=== PATIENT | male | born 1990 | race Caucasian/White ===

== ENCOUNTER 2019-01-21 18:29 | Inpatient (IN) | payer BC ==
[~2019-01-21] VITALS: Ht 170.2 cm; Wt 47.6 kg
[2019-01-21 18:38] VITALS: BP 134/82
--- NOTE | 2019-01-21 18:40 | NUR ---
BIB FRIEND WITH AAO X4. C/O ABDOMEN RADIATING TO BACK, 08/05 TODAY. C/O NAUSEA, VOMITING X5 TODAY, DIARRHEA X4 TODAY. NO SOB NOTED. PALE IN COLOR. 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 IV INITIATED. HOB UP. BED SIDE RAILS UP X1. ON LOW BED POSITION, LOCKED. ER MADE AWARE OF PT STATUS.
--- NOTE | 2019-01-21 19:08 | NUR ---
RECEIVED REPORT FROM MARISSA HARPER.
[2019-01-21] MEDS ORDERED: ONDANSETRON 4 MG/2 ML VIAL IVP ONE ×3 (19:15→21:15)
[2019-01-21] MEDS ORDERED: NACL 0.9% 1,000 ML IV ONE ×3 (19:15→20:15)
[2019-01-21] MEDS ORDERED: KETOROLAC 30 MG/ML VIAL IVP ONE (19:35)
[2019-01-21 20:09] LABS: BASOPHILS % (AUTO) 0.3 % (0.0-2.0); HEMATOCRIT 39.3 % (36-52); HEMOGLOBIN 12.7 g/dL (12.0-18.0); LYMPHOCYTES # (AUTO) 0.6 K/uL (2.0-11.5); LYMPHOCYTES % (AUTO) 5.6 % (20.5-51.1); MEAN CORPUSCULAR HEMOGLOBIN 27 pg (27-31); MEAN CORPUSCULAR HGB CONC 32 g/dL (33-37); MONOCYTES # (AUTO) 0.4 K/uL (0.8-1.0); MONOCYTES % (AUTO) 3.3 % (1.7-9.3); NEUTROPHILS # (AUTO) 10.4 K/uL (1.8-7.7); NEUTROPHILS % (AUTO) 90.8 % (42.2-75.2); PLATELET COUNT (AUTO) 293 K/uL (140-450); RED BLOOD CELL COUNT(AUTO) 4.79 MIL/uL (4.20-6.10); RED CELL DISTRIBUTION WIDTH 13.5 % (11.6-13.7); WHITE BLOOD COUNT (AUTO) 11.4 K/uL (4.8-10.8)
[2019-01-21] MEDS ORDERED: MORPHINE SULFATE 4 MG/ML SYR IVP ONE (20:15)
[2019-01-21] MEDS ORDERED: PROMETHAZINE 25 MG/ML VIAL IVP ONE (20:15)
[2019-01-21] MEDS ORDERED: PANTOPRAZOLE 40 MG INJ VIAL IVP ONE (20:15)
--- NOTE | 2019-01-21 20:35 | NUR ---
PT TAKEN TO CT.
[2019-01-21 20:36] LABS: ANION GAP 20.1 (8-16); CARBON DIOXIDE 19.1 mmol/L (21-32); CREATININE 0.8 mg/dL (0.7-1.3); POTASSIUM 3.2 mmol/L (3.5-5.1)
[2019-01-21 20:40] LABS: TOTAL BILIRUBIN 0.4 mg/dL (0.0-1.0)
--- NOTE | 2019-01-21 20:46 | NUR ---
PT RETURNED FROM CT.
[2019-01-21] MEDS ORDERED: DOCUSATE SODIUM 100 MG GELCAP PO PRN (21:15)
[2019-01-21] MEDS ORDERED: ONDANSETRON 4 MG/2 ML VIAL IM/IVP PRN (21:15)
[2019-01-21] MEDS ORDERED: ACETAMINOPHEN 325 MG TAB PO PRN (21:15)
[2019-01-21] MEDS ORDERED: HYDROcodone/APAP 7.5/325 MG 1 TAB PO PRN (21:15)
[2019-01-21] MEDS ORDERED: ESTR1TAB19 PO (21:21)
[2019-01-21] MEDS ORDERED: LORA-476 PO (21:21)
[2019-01-21] MEDS ORDERED: PROG100C4 PO (21:21)
[2019-01-21] MEDS ORDERED: SPIR50TA PO (21:21)
[2019-01-21] MEDS ORDERED: HYDR-5123 PO (21:21)
[2019-01-21] MEDS ORDERED: PANT40EC PO (21:21)
[2019-01-21] MEDS ORDERED: SERT100T PO (21:21)
[2019-01-21] MEDS ORDERED: BEN10 PO (21:21)
[2019-01-21] MEDS ORDERED: PROMETHAZINE 25 MG/ML VIAL IM PRN (21:35)
--- NOTE | 2019-01-21 21:45 | NUR ---
PATIENT ARRIVED IN THE UNIT FROM ER, ASSISTED BY TWO CAMERA CONTROL OPERATOR's. PATIENT ABLE TO AMBULATE FROM GURNEY TO BED WITH NO ASSISTANCE. PATIENT IS A/Ox4, ABLE TO MAKE NEEDS KNOWN. INTRODUCED SELF, ORIENTED PATIENT TO ROOM AND HOSPITAL ENVIRONMENT, UPDATED BOARD. CHIEF COMPLAINT FOR ABDOMINAL PAIN. DIAGNOSIS - INTRACTABLE VOMITING. PATIENT IS CURRENTLY ON NPO EXCEPTS MEDS. NO SOB OR DISTRESS NOTED, ON ROOM AIR. PATIENT HAS IV SITE ON RIGHT ANTECUBITAL, 22 GAUGE, INTACT, SALINE LOCKED. SKIN INTACT. BED IN THE LOWEST POSITION, CALL LIGHT WITHIN REACH. INATAL ASSESSMENT DONE. WILL CONTINUE TO MONITOR.
[2019-01-21 21:46] LABS: MAGNESIUM 1.5 mg/dL (1.8-2.4); THYROID STIMULATING HORMONE 0.99 uIU/mL (0.34-3.74)
[2019-01-21 21:47] LABS: PROTHROMBIN TIME 9.9 secs (10.8-13.4)
--- NOTE | 2019-01-21 21:47 | NUR ---
Patient will be admitted to care of Dr. Thompson. Admited to MS. Will go to room 103-B. Belongings list completed. Report to MARISSA Mullen.
[2019-01-21 21:51] LABS: PHOSPHORUS 0.6 mg/dL (2.5-4.9)
[2019-01-21] MEDS ORDERED: DICYCLOMINE 10 MG CAP PO PRN ×2 (21:55→21:58)
[2019-01-21] MEDS ORDERED: POTASSIUM PHOSPHATE 15 MM in NACL 0.9% 250 ML IV ONE (22:00)
[2019-01-21] MEDS ORDERED: KCL 20 MEQ/WATER INJ PREMIX 100 ML IV ONE (23:00)
[2019-01-21 23:20] LABS: APPEARANCE,URINE CLEAR (CLEAR); BILIRUBIN,URINE NEGATIVE (NEGATIVE); BLOOD, URINE NEGATIVE (NEGATIVE); COLOR,URINE YELLOW (YELLOW); LEUKOCYTE ESTERASE ,URINE NEGATIVE (NEGATIVE); NITRITE, URINE NEGATIVE (NEGATIVE); PH,URINE 8.5 (5.0-9.0); UGLUCOSE 1+ (NEGATIVE)
[2019-01-21 23:27] LABS: BARBITURATE, URINE NEG. ng/ml (NEG <=200); BENZODIAZEPINE, URINE NEG. ng/mL (NEG <=200); CANNABINOID, URINE POS. ng/mL (NEG <=50); COCAINE, URINE NEG. ng/mL (NEG <=300); OPIATE, URINE NEG. ng/mL (NEG <=2000); PHENCYCLIDINE SCREEN,URINE NEG. ng/mL (NEG <=25)
[2019-01-21] MEDS: DEXT 5% /NACL 0.9% 1,000 ML IV SCH (23:31)
[2019-01-21] MEDS: ONDANSETRON 4 MG/2 ML VIAL IM/IVP PRN (23:34)
[2019-01-21] MEDS: MORPHINE SULFATE 2 MG/ML SYR IVP PRN (23:35)
--- NOTE | 2019-01-21 23:35 | NUR ---
PATIENT COMPLAINED OF 8/[address] BOYKIN MADE AWARE; ORDERS MADE AND CARRIED OUT.
[2019-01-22] VITALS: BP 117/81
--- NOTE | 2019-01-22 00:05 | NUR ---
VITALS TAKEN, PATIENT IS AWAKE, SITTING UP ON THE BED.
--- NOTE | 2019-01-22 02:30 | NUR ---
PATIENT COMPLAINED OF VOMITING COFFEE GROUND EMESIS; DR. BOYKIN MADE AWARE, NO NEW ORDERS.
[2019-01-22] MEDS ORDERED: LORazepam 2 MG/ML VIAL IM/IVP SCH (03:01)
--- NOTE | 2019-01-22 04:40 | NUR ---
CHECKS MADE, PATIENT ASLEEP, EYES CLOSED, VISIBLE CHEST RISE AND FALL NOTED.
[2019-01-22] MEDS: MORPHINE SULFATE 2 MG/ML SYR IVP PRN ×2 (06:02→11:50)
[2019-01-22] MEDS: ONDANSETRON 4 MG/2 ML VIAL IM/IVP PRN ×3 (06:02→20:47)
[2019-01-22 07:04] LABS: RBC,URINE NONE SEEN /HPF (0-5)
--- NOTE | 2019-01-22 07:10 | NUR ---
ENDORSED PATIENT TO AM SHIFT RN; PATIENT IN STABLE CONDITION.
--- NOTE | 2019-01-22 07:11 | NUR ---
RECEIVED REPORT FROM PM NURSE AT BEDSIDE. PT SITTING , STATES TO HAVE VOMITING. VOMITING IS COFFEE GROUND IN COLOR. PM NURSE TO ADMINISTER PHENERGAN TO THE PT. COMPLAIN OF THE PAIN 05/05.. INFORMED PT THAT WILL MEDICATE THE PAIN MEDS ORDERED. PT HAS THE IV SITE ON THE RT AC 22 G. SKIN IS INTACT. INFORMED PT TO USE CALL LIGHT FRO ANY HELP. VERBALIZED UNDERSTANDING. WILL CONTINUE TO MONITOR PT.
[2019-01-22] MEDS: PROMETHAZINE 25 MG/ML VIAL IVP PRN ×2 (07:31→16:49)
[2019-01-22 08:00] VITALS: BP 137/90
[2019-01-22] MEDS ORDERED: POTASSIUM PHOSPHATE 15 MM in NACL 0.9% 250 ML IV SCH (08:00)
[2019-01-22] MEDS ORDERED: SODIUM PHOSPHATE 15 MMOLE in NACL 0.9% 250 ML IV SCH (08:00)
--- NOTE | 2019-01-22 08:28 | NUR ---
PATIENT HAS BEEN SCREENED AND CATEGORIZED HIGH NUTRITION RISK. PATIENT WILL BE SEEN WITHIN 1-2 DAYS OF ADMISSION. 01/22/19-01/23/[address]
[2019-01-22] MEDS: PANTOPRAZOLE 40 MG INJ VIAL IVP SCH ×2 (08:36→20:30)
[2019-01-22] MEDS: KETOROLAC 30 MG/ML VIAL IVP PRN ×3 (08:37→22:38)
[2019-01-22] MEDS: SERTRALINE 50 MG TAB PO SCH (08:37)
[2019-01-22] MEDS: SPIRONOLACTONE 50 MG TAB PO SCH (08:37)
[2019-01-22] MEDS: LORazepam 1 MG TAB PO SCH ×2 (08:38→20:30)
--- NOTE | 2019-01-22 08:51 | NUR ---
ADMINISTERED MEDS TO PT ORDERED. TOLERATED WELL. NO SIGN OF DISTRESS. INFORMED HER TO USE CALL LIGHT FOR ANY HELP. BED ALARM ON. WILL CONTINUE TO MONITOR PT.
[2019-01-22] MEDS: DEXT 5% /NACL 0.9% 1,000 ML IV SCH ×2 (09:00→19:54)
[2019-01-22 09:30] LABS: BASOPHILS % (AUTO) 0.1 % (0.0-2.0); HEMATOCRIT 36.2 % (36-52); HEMOGLOBIN 11.7 g/dL (12.0-18.0); MEAN CORPUSCULAR HEMOGLOBIN 27 pg (27-31); MEAN CORPUSCULAR HGB CONC 32 g/dL (33-37); MEAN CORPUSCULAR VOLUME 82.7 fL (80-94); MONOCYTES # (AUTO) 0.9 K/uL (0.8-1.0); MONOCYTES % (AUTO) 7.5 % (1.7-9.3); NEUTROPHILS # (AUTO) 10.3 K/uL (1.8-7.7); NEUTROPHILS % (AUTO) 84.4 % (42.2-75.2); PLATELET COUNT (AUTO) 271 K/uL (140-450); RED BLOOD CELL COUNT(AUTO) 4.37 MIL/uL (4.20-6.10); RED CELL DISTRIBUTION WIDTH 13.7 % (11.6-13.7); WHITE BLOOD COUNT (AUTO) 12.2 K/uL (4.8-10.8)
[2019-01-22 10:08] LABS: ANION GAP 15.2 (8-16); CARBON DIOXIDE 24.9 mmol/L (21-32); CREATININE 0.7 mg/dL (0.7-1.3); POTASSIUM 4.1 mmol/L (3.5-5.1)
[2019-01-22 10:15] LABS: CHOL/HDL RATIO 2.2 (1-4.5); MAGNESIUM 1.7 mg/dL (1.8-2.4); PHOSPHORUS 3.4 mg/dL (2.5-4.9)
--- NOTE | 2019-01-22 11:58 | NUR ---
ADMINISTERED MEDS TO PT FOR PAIN AND NAUSEA. STATES CANNOT TOLERATE THE PO MEDS. PT VOMITED AFTER TAKING PO MEDS IN AM. PT APPEARS STABLE AT THIS TIME. NO SIGN OF DISTRESS NOTED. WILL CONTINUE TO MONITOR PT.
--- NOTE | 2019-01-22 14:19 | NUR ---
01/22/19 RD INITIAL ASSESSMENT COMPLETED PLEASE REFER TO NUTRITION ASSESSMENT UNDER CARE ACTIVITY FOR ESTIMATED NUTRITIONAL NEEDS. 1. CONTINUE NPO MEDICALLY APPROPRIATE 2. RECOMMEND VEGAN CLEAR LIQUID DIET WHEN PATIENT IS MEDICALLY STABLE 3. INCREASE ENERGY AND PROTEIN DIET EDUCATION WAS PROVIDED 4. RD TO FOLLOW-UP 2-3 DAYS, HIGH RISK XIAO JONES RD
[2019-01-22 16:00] VITALS: BP 102/66
[2019-01-22] MEDS: SENNA 8.6 MG TAB PO SCH (18:28)
[2019-01-22] MEDS: METOCLOPRAMIDE 10 MG/2 ML INJ VIAL IVP SCH ×2 (18:28→23:11)
--- NOTE | 2019-01-22 19:05 | NUR ---
ENDORSED PT TO PM NURSE AT BESIDE . PT IN STABLE CONDITION.
--- NOTE | 2019-01-22 19:07 | NUR ---
RECEIVED ENDORSEMENT FROM AM SHIFT RN; PATIENT A/Ox4, AMBULATORY, ABLE TO MAKE NEEDS KNOWN. INTRODUCED SLEF UPDATED BOARD. NO SOB OR DISTRESS NOTED, ON ROOM AIR. IV SITE ON RIGHT ANTECUBITAL, 22 GAUGE, INTACT, RUNNING IVF AT 100mL/HR. SKIN INTACT. BED IN THE LOWEST POSITION. CALL LIGHT WITHIN REACH. INITIAL ASSESSMENT DONE. WILL CONTINUE TO MONITOR.
[2019-01-22] MEDS: HYOSCYAMINE 0.125 MG TAB PO SCH ×2 (19:51→23:11)
--- NOTE | 2019-01-22 20:00 | NUR ---
VITALS TAKEN, NO DISTRESS NOTED. DUE MEDS GIVEN, TOLERATED WELL.
--- NOTE | 2019-01-22 20:40 | NUR ---
PATIENT COMPLAINED OF NAUSEA; MEDICATED ORDERED.
--- NOTE | 2019-01-22 23:21 | NUR ---
VITALS TAKEN, DUE MEDS GIVEN. NO DISTRESS NOTED. PATIENT IS AWAKE, WATCHING TV.
[2019-01-23] VITALS: BP 110/58
--- NOTE | 2019-01-23 01:43 | NUR ---
Rounds made; patient asleep, visible chest rise and fall noted.
--- NOTE | 2019-01-23 03:50 | NUR ---
Checks made, patient asleep, no distress noted.
[2019-01-23] MEDS: HYOSCYAMINE 0.125 MG TAB PO SCH ×7 (04:11→23:12)
[2019-01-23] MEDS: DEXT 5% /NACL 0.9% 1,000 ML IV SCH ×2 (04:12→15:00)
--- NOTE | 2019-01-23 04:23 | NUR ---
Due meds administered, IVF replenished. Patient asleep, eyes closed, visible chest rise and fall noted.
[2019-01-23] MEDS: METOCLOPRAMIDE 10 MG/2 ML INJ VIAL IVP SCH ×4 (05:02→23:11)
--- NOTE | 2019-01-23 06:00 | NUR ---
Due meds given, no distress noted.
[2019-01-23 07:05] LABS: BASOPHILS % (AUTO) 0.6 % (0.0-2.0); EOSINOPHILS # (AUTO) 0.2 K/uL (0-0.4); EOSINOPHILS % (AUTO) 2.1 % (0.0-4.0); HEMATOCRIT 34.5 % (36-52); HEMOGLOBIN 11.2 g/dL (12.0-18.0); LYMPHOCYTES % (AUTO) 37.5 % (20.5-51.1); MEAN CORPUSCULAR HEMOGLOBIN 27 pg (27-31); MEAN CORPUSCULAR HGB CONC 32 g/dL (33-37); MEAN CORPUSCULAR VOLUME 84.4 fL (80-94); MONOCYTES # (AUTO) 0.8 K/uL (0.8-1.0); MONOCYTES % (AUTO) 10.1 % (1.7-9.3); NEUTROPHILS % (AUTO) 49.7 % (42.2-75.2); PLATELET COUNT (AUTO) 234 K/uL (140-450); RED BLOOD CELL COUNT(AUTO) 4.08 MIL/uL (4.20-6.10); RED CELL DISTRIBUTION WIDTH 13.9 % (11.6-13.7); WHITE BLOOD COUNT (AUTO) 8.1 K/uL (4.8-10.8)
--- NOTE | 2019-01-23 07:20 | NUR ---
Endorsed patient to AM shift RN; patient in stable condition.
--- NOTE | 2019-01-23 07:21 | NUR ---
RECEIVED REPORT FROM CRACKING UNIT OPERATOR RN. PATIENT AAOx4, AMBULATORY, ABLE TO MAKE NEEDS KNOWN. INTRODUCED SELF AND UPDATED BOARD. NO SOB OR DISTRESS NOTED, ON ROOM AIR. IV SITE ON RIGHT ANTECUBITAL, 22 GAUGE, INTACT, RUNNING IVF AT 100mL/HR. SKIN INTACT. BED IN THE LOWEST POSITION. CALL LIGHT WITHIN REACH. INITIAL ASSESSMENT DONE. WILL CONTINUE TO MONITOR.
[2019-01-23 07:25] LABS: ANION GAP 10.6 (8-16); CARBON DIOXIDE 26.1 mmol/L (21-32); CREATININE 0.7 mg/dL (0.7-1.3); POTASSIUM 3.7 mmol/L (3.5-5.1)
[2019-01-23 07:28] LABS: PHOSPHORUS 3.1 mg/dL (2.5-4.9)
[2019-01-23 08:00] VITALS: BP 113/70
[2019-01-23] MEDS ORDERED: ELA10 PO (08:09)
--- NOTE | 2019-01-23 08:43 | NUR ---
PT REFUSING ALL PO MEDS AT THIS TIME DUE TO N/V. IV MEDS WERE GIVEN ALONG WITH REGLAN FOR N/V RELIEF. DR NOTIFIED OF PT N/V. DR IS TO ORDER GI COCKTAIL FOR SYMPTOM RELIEF. ALL OTHER NEEDS MET. VITAL SIGNS STABLE. BED IN LOW POSITION, CALL LIGHT WITHIN REACH.
[2019-01-23] MEDS: PROMETHAZINE 25 MG/ML VIAL IVP PRN ×2 (08:47→16:57)
[2019-01-23] MEDS: SERTRALINE 50 MG TAB PO SCH ×2 (08:51→09:00)
[2019-01-23] MEDS: SENNA 8.6 MG TAB PO SCH ×4 (08:51→17:00)
[2019-01-23] MEDS: LORazepam 1 MG TAB PO SCH ×3 (08:52→21:00)
[2019-01-23] MEDS: KETOROLAC 30 MG/ML VIAL IVP PRN ×3 (08:53→23:11)
[2019-01-23] MEDS: PANTOPRAZOLE 40 MG INJ VIAL IVP SCH ×2 (08:53→21:05)
[2019-01-23] MEDS: SPIRONOLACTONE 50 MG TAB PO SCH ×2 (09:00→09:16)
[2019-01-23] MEDS ORDERED: LIDOCAINE VISCOUS 2% 20 ML UDC PO SCH (10:25)
[2019-01-23] MEDS ORDERED: ALUMINUM HYD/MAG/SIMETHICONE 30 ML UDC PO SCH (10:25)
[2019-01-23] MEDS ORDERED: DICYCLOMINE HCL LIQUID 10 MG/5 ML UDC PO SCH (10:25)
[2019-01-23] MEDS: LORazepam 2 MG/ML VIAL IM/IVP PRN ×2 (11:00→21:17)
--- NOTE | 2019-01-23 11:42 | NUR ---
PT COMPLAINING OF VOMITING. DR WAS NOTIFIED. AWAITING DR ORDERS. PT IN STABLE CONDITION, VITALS WITHIN NORMAL LIMITS. NO SIGNS OF DISTRESS NOTED.
--- NOTE | 2019-01-23 13:04 | NUR ---
PT VERBALIZED THAT SHE IS VOMITING. NO VOMITING HAS BEEN NOTED.
[2019-01-23] MEDS: ONDANSETRON 4 MG/2 ML VIAL IM/IVP PRN ×2 (13:07→19:59)
[2019-01-23] MEDS ORDERED: ESTRADIOL 1 MG TAB PO SCH (13:40)
[2019-01-23] MEDS ORDERED: ALUMINUM HYD/MAG/SIMETHICONE 30 ML UDC PO PRN (13:50)
[2019-01-23] MEDS ORDERED: DICYCLOMINE 20 MG/2 ML VIAL IM SCH (13:50)
--- NOTE | 2019-01-23 15:35 | NUR ---
PT ASLEEP IN BED. NO SIGNS OF DISTRESS OR PAIN. WILL CONTINUE TO ROUND FREQUENTLY ON PT. BED IN LOWEST POSITION, CALL LIGHT WITHIN REACH.
[2019-01-23 16:00] VITALS: BP 119/82
--- NOTE | 2019-01-23 17:25 | NUR ---
REGLAN WAS HELD DUE TO PT RECEIVING PHENERGAN AT THE SAME TIME PER DR ORDERS.
--- NOTE | 2019-01-23 19:42 | NUR ---
ENDORSED PT TO OIL TRANSPORT DRIVER FOR CONTINUITY OF CARE. PT IN STABLE CONDITION.
--- NOTE | 2019-01-23 19:57 | NUR ---
RECEIVED PT BURPING AND C/O OF NAUSEA WILL GIVE ZOFRAN ORDERED.
[2019-01-23] MEDS ORDERED: NACL 0.45% 1,000 ML IV SCH (20:15)
--- NOTE | 2019-01-23 20:20 | NUR ---
INFORMED ME THAT PT NEEDS A HOT SHOWER. WILL CARRY OUT ORDER.
[2019-01-23] MEDS ORDERED: AMITRIPTYLINE 10 MG TAB PO SCH (21:00)
--- NOTE | 2019-01-23 21:07 | NUR ---
NOT GIVEN ATIVAN BEC PT IS NAUSEOUS. GIVEN IV ATIVAN INSTEAD ORDERED PRN
--- NOTE | 2019-01-23 21:57 | NUR ---
PT NOT EATING, HE FEELS NAUSEOUS, INFORMED DR. LEWIS. WILL ORDER BACK TO D5%NS IVF.
--- NOTE | 2019-01-23 21:59 | NUR ---
HOT SHOWER DONE, PT FELT BETTER VERBALIZED.
[2019-01-23] MEDS: DEXT 5% / NACL 0.45% 1,000 ML IV SCH (22:00)
[2019-01-24] VITALS: BP 121/91
--- NOTE | 2019-01-24 03:03 | NUR ---
FREQUENT ROUNDING DONE, PT SLEEPING, NO COMPLAINTS AT THIS TIME
[2019-01-24] MEDS: HYOSCYAMINE 0.125 MG TAB PO SCH ×4 (03:14→16:24)
[2019-01-24 04:00] VITALS: BP 114/72
[2019-01-24] MEDS: KETOROLAC 30 MG/ML VIAL IVP PRN ×2 (05:15→13:39)
[2019-01-24] MEDS: METOCLOPRAMIDE 10 MG/2 ML INJ VIAL IVP SCH ×3 (05:15→17:25)
--- NOTE | 2019-01-24 06:45 | NUR ---
PT AWAKE,ALERT O X 4, PT STILL COMPLAINTS OF BEING NAUSEATED BUT STATES FEELING BETTER W/ THE MANAGEMENT, W/ ONGOING TX FOR N/V. HOT SHOWER ADDED TO THE TX. ENDORSED TO NEXT SHIFT
[2019-01-24 07:14] LABS: BASOPHILS % (AUTO) 0.4 % (0.0-2.0); EOSINOPHILS # (AUTO) 0.1 K/uL (0-0.4); EOSINOPHILS % (AUTO) 1.1 % (0.0-4.0); HEMOGLOBIN 11.3 g/dL (12.0-18.0); LYMPHOCYTES # (AUTO) 2.2 K/uL (2.0-11.5); LYMPHOCYTES % (AUTO) 24.5 % (20.5-51.1); MEAN CORPUSCULAR HEMOGLOBIN 27 pg (27-31); MEAN CORPUSCULAR HGB CONC 32 g/dL (33-37); MEAN CORPUSCULAR VOLUME 83.1 fL (80-94); MONOCYTES # (AUTO) 0.7 K/uL (0.8-1.0); MONOCYTES % (AUTO) 7.9 % (1.7-9.3); NEUTROPHILS % (AUTO) 66.1 % (42.2-75.2); PLATELET COUNT (AUTO) 255 K/uL (140-450); RED BLOOD CELL COUNT(AUTO) 4.21 MIL/uL (4.20-6.10); RED CELL DISTRIBUTION WIDTH 13.7 % (11.6-13.7); WHITE BLOOD COUNT (AUTO) 9.2 K/uL (4.8-10.8)
--- NOTE | 2019-01-24 07:15 | NUR ---
RECEIVED REPORT FROM RN CARDIOVASCULAR RN. PATIENT AAOx4, AMBULATORY, ABLE TO MAKE NEEDS KNOWN. INTRODUCED SELF AND UPDATED BOARD. NO SOB OR DISTRESS NOTED, ON ROOM AIR. IV SITE ON RIGHT ANTECUBITAL, 22 GAUGE, INTACT, RUNNING IVF AT 100mL/HR. SKIN INTACT. BED IN THE LOWEST POSITION. CALL LIGHT WITHIN REACH. INITIAL ASSESSMENT DONE. WILL CONTINUE TO MONITOR.
[2019-01-24 07:28] LABS: ANION GAP 11.8 (8-16); CARBON DIOXIDE 24.3 mmol/L (21-32); CREATININE 0.6 mg/dL (0.7-1.3); POTASSIUM 3.1 mmol/L (3.5-5.1)
[2019-01-24 07:35] LABS: PHOSPHORUS 3.2 mg/dL (2.5-4.9)
[2019-01-24 08:00] VITALS: BP 117/87
[2019-01-24] MEDS: ONDANSETRON 4 MG/2 ML VIAL IM/IVP PRN (08:17)
[2019-01-24] MEDS: PANTOPRAZOLE 40 MG INJ VIAL IVP SCH (08:17)
[2019-01-24] MEDS: DEXT 5% / NACL 0.45% 1,000 ML IV SCH (08:18)
[2019-01-24] MEDS ORDERED: PROCHLORPERAZINE 10 MG/2 ML VIAL IM PRN (08:55)
[2019-01-24] MEDS: SERTRALINE 50 MG TAB PO SCH (09:00)
[2019-01-24] MEDS: SENNA 8.6 MG TAB PO SCH ×3 (09:00→17:00)
[2019-01-24] MEDS: LORazepam 1 MG TAB PO SCH (09:00)
[2019-01-24] MEDS: SPIRONOLACTONE 50 MG TAB PO SCH (09:00)
[2019-01-24] MEDS ORDERED: ESTRADIOL 1 MG TAB PO SCH (09:00)
[2019-01-24] MEDS: LORazepam 2 MG/ML VIAL IM/IVP PRN (11:35)
[2019-01-24] MEDS ORDERED: POTASSIUM CHLORIDE 10 MEQ TABER PO SCH (11:45)
--- NOTE | 2019-01-24 12:36 | NUR ---
PT IN BED HAVING LUNCH. PT IS TOLERATING FOOD WELL. ALL NEEDS MET A THIS TIME. BED IN LOW POSITION, CALL LIGHT WITHIN REACH.
[2019-01-24] MEDS ORDERED: ONDA-25 PO (13:00)
--- NOTE | 2019-01-24 13:04 | NUR ---
PT RESTING. NO LONGER COMPLAINING OF N/V. PT TOLERATING SOLID FOOD NOW. WILL CONTINUE TO MONITOR PT TOLERANCE TO SOLID FOODS.
--- NOTE | 2019-01-24 15:02 | NUR ---
PT ASLEEP IN BED. NO SIGNS OF DISTRESS OR PAIN. WILL CONTINUE TO ROUND FREQUENTLY ON PT. BED IN LOWEST POSITION, CALL LIGHT WITHIN REACH.
[2019-01-24 16:00] VITALS: BP 109/68
[2019-01-24 16:55] LABS: ANION GAP 11.9 (8-16); CARBON DIOXIDE 27.8 mmol/L (21-32); CREATININE 0.7 mg/dL (0.7-1.3); POTASSIUM 3.7 mmol/L (3.5-5.1)
--- NOTE | 2019-01-24 17:59 | NUR ---
PT HAVING DINNER IN BED. NO COMPLAINTS OF N/V, PAIN, OR DISTRESS. PT AWAITING RIDE HOME FOR DISCHARGE. ALL NEEDS CURRENTLY MET. BED IN LOW POSITION, CALL LIGHT WITHIN REACH.
--- NOTE | 2019-01-24 18:06 | NUR ---
PT DISCHARGED HOME FOR SELF CARE. PT DISCHARGE TEACHING WAS GIVEN ON IMPORTANCE OF FOLLOWING UP WITH PCP, TAKING PRESCRIBED MEDS, AND FOLLOWING DISCHARGE INSTRUCTIONS. PT VERBALIZED UNDERSTANDING OF TEACHING. ALL DISCHARGE PAPERWORK SIGNED. IV WAS REMOVED WITH TIP INTACT. WRIST BANDS REMOVED AND PLACED IN SHRED BIN. ALL PERSONAL BELONGINGS TAKEN WITH PT. PT LEFT IN STABLE CONDITION.
[2019-01-25 15:23] LABS: TRANSFERRIN 244 mg/dL (200-370)
[2019-01-26 06:14] LABS: FERRITIN 36 ng/mL (30-400)
== END 2019-01-24 18:06 | disposition home or self-care (01) | DRG 392 ==
LOC: MED 18:29 → MTU 21:16
PROVIDERS: ADMIT General Practice; ATTEND General Practice
DX: K58.9 Irritable bowel syndrome, unspecified (principal); F12.988 Cannabis use, unspecified with other cannabis-induced disorder; E87.6 Hypokalemia; E83.42 Hypomagnesemia; E83.39 Other disorders of phosphorus metabolism; F12.90 Cannabis use, unspecified, uncomplicated; G89.29 Other chronic pain; K21.9 Gastro-esophageal reflux disease without esophagitis; F41.9 Anxiety disorder, unspecified; F32.9 Major depressive disorder, single episode, unspecified; R11.10 Vomiting, unspecified
CPT/HCPCS: 36415; 71045; 80048; 80053; 80305; 81001; 82150; 82728; 83036; 83540; 83690; 83735; 83880; 84100; 84443; 84484; 85025; 85045; 85610; 85730; 87081; 87086; 93005; 96374; 96375; 96376; 99285; C9113; J0500; J1885; J2060; J2270; J2405; J2550; J2765; J3480; J7030; J7042; Q0092

== ENCOUNTER 2019-05-09 11:26 | Inpatient (IN) | payer BC ==
[~2019-05-09] VITALS: Ht 170.2 cm; Wt 54.4 kg
[~2019-05-09 11:26] MED LIST: BEN10 PO; ELA10 PO; ESTR1TAB19 PO; HYDR-5123 PO; LORA-476 PO; ONDA-25 PO; PANT40EC PO; PROG100C4 PO; SERT100T PO; SPIR50TA PO
[2019-05-09 11:35] VITALS: BP 146/91
--- NOTE | 2019-05-09 11:45 | NUR ---
PT BIB FAMILY C/O ABDOMINAL PAIN, N/V/D X2 DAYS. PT REPORTS VOMITING 6X THIS MORNING AND REPORTS DIARRHEA YESTERDAY. LLQ SHARP/CRAMPING ABD PAIN THAT RADIATES TO LLQ. ABD IS SOFT, FLAT, TENDER TO PALPATION, AND BOWEL SOUNDS ACTIVE X4 QUADRANTS. PT TX W/ NORCO, PROTONIC, AND ZOFRAN THIS MORNING. VSS. ER MD TO SEE PT. MEDHX: GERD, CHRONIC PANCREATITIS, IBS
[2019-05-09] MEDS ORDERED: NACL 0.9% 1,000 ML IV SCH (11:51)
[2019-05-09] MEDS ORDERED: KETOROLAC 30 MG/ML VIAL IVP ONE (11:55)
[2019-05-09] MEDS ORDERED: ONDANSETRON 4 MG/2 ML VIAL IVP ONE (11:55)
[2019-05-09] MEDS ORDERED: LORazepam 2 MG/ML VIAL IVP ONE (12:20)
[2019-05-09] MEDS ORDERED: PROMETHAZINE 25 MG/ML VIAL IVP ONE ×2 (12:25→13:10)
--- NOTE | 2019-05-09 12:39 | NUR ---
blood sent to lab, IVP pain meds given for abd pain 05/05-nadr at this time. PAIN POST IVP PAIN MEDS 12/06. FAMILY AT BEDSIDE, VSS, PT STABLE AT THIS TIME
[2019-05-09 13:01] LABS: CARBON DIOXIDE 19.4 mmol/L (21-32); POTASSIUM 3.4 mmol/L (3.5-5.1)
[2019-05-09 13:05] LABS: BASOPHILS % (AUTO) 0.5 % (0.0-2.0); EOSINOPHILS % (AUTO) 0.2 % (0.0-4.0); HEMATOCRIT 43.3 % (36-52); HEMOGLOBIN 14.2 g/dL (12.0-18.0); LYMPHOCYTES # (AUTO) 1.6 K/uL (2.0-11.5); MEAN CORPUSCULAR HEMOGLOBIN 26 pg (27-31); MEAN CORPUSCULAR HGB CONC 33 g/dL (33-37); MEAN CORPUSCULAR VOLUME 79.9 fL (80-94); MONOCYTES # (AUTO) 0.7 K/uL (0.8-1.0); MONOCYTES % (AUTO) 6.4 % (1.7-9.3); NEUTROPHILS # (AUTO) 8.2 K/uL (1.8-7.7); NEUTROPHILS % (AUTO) 77.9 % (42.2-75.2); PLATELET COUNT (AUTO) 289 K/uL (140-450); RED BLOOD CELL COUNT(AUTO) 5.42 MIL/uL (4.20-6.10); WHITE BLOOD COUNT (AUTO) 10.5 K/uL (4.8-10.8)
[2019-05-09 13:07] LABS: ALBUMIN 4.5 g/dL (3.4-5.0); TOTAL BILIRUBIN 0.7 mg/dL (0.0-1.0)
--- NOTE | 2019-05-09 13:07 | NUR ---
PT VOMITNG AT THIS TIME, 100CC OF YELLOW GREEN EMESIS. PT REPORTS PAIN HAS DECREASED BUT IS STILL HIGH AT 06/05, ER MD NOTIFIED.
[2019-05-09] MEDS ORDERED: MORPHINE SULFATE 4 MG/ML SYR IVP ONE (13:50)
[2019-05-09] MEDS ORDERED: HYDROcodone/APAP 7.5/325 MG 1 TAB PO PRN (14:05)
[2019-05-09] MEDS ORDERED: ACETAMINOPHEN 325 MG TAB PO PRN (14:05)
--- NOTE | 2019-05-09 14:25 | NUR ---
Patient will be admitted to care of [facility]. Admited to MED/SURG VIA WHEELCHAIR W/ VSS. Will go to room 111B. Belongings list completed. Report to GUILLERMINA ANN.
--- NOTE | 2019-05-09 14:43 | NUR ---
PT ARRIVED ON THE UNIT. PT APPEARS STABLE AND IN NO APPARENT DISTRESS. ALL SAFETY MEASURES ARE IN PLACE. WILL CONTINUE TO MONITOR.
[2019-05-09 14:58] VITALS: BP 137/89
[2019-05-09 15:22] LABS: PROTHROMBIN TIME 10.3 secs (10.8-13.4)
[2019-05-09] MEDS ORDERED: DICYCLOMINE HCL LIQUID 10 MG/5 ML UDC PO PRN (15:35)
--- NOTE | 2019-05-09 15:35 | NUR ---
PT COMPLAINED OF NAUSEA AND VOMITING ADMINISTERED ZOFRAN. SCANNED PT AND MEDICATION. AND ADMINISTERED MEDICATION VIA IV PUSH. LATER NOTICED THAT IT DIDNT SHOW IN THE EMAR. NOT SURE IF IT HAS SOMETHING TO DO WITH POWER OUTAGE. [facility] STUDENT WAS PRESENT DURING ADMINISTRATION OF MEDICATION.
[2019-05-09 15:36] LABS: FREE T4 (FREE THYROXINE) 1.46 ng/dL (0.76-1.46); MAGNESIUM 1.9 mg/dL (1.8-2.4); PHOSPHORUS 1.6 mg/dL (2.5-4.9); THYROID STIMULATING HORMONE 1.1 uIU/mL (0.34-3.74)
[2019-05-09] MEDS: ONDANSETRON 4 MG/2 ML VIAL IVP PRN ×2 (15:37→18:09)
[2019-05-09] MEDS ORDERED: PHE25S PO (15:41)
[2019-05-09] MEDS ORDERED: DRON2.5S4 PO (15:41)
[2019-05-09] MEDS ORDERED: AMYL-13 PO (15:43)
[2019-05-09] MEDS: DEXT 5% / NACL 0.9% 500 ML IV SCH ×2 (15:45→20:45)
[2019-05-09] MEDS ORDERED: POTASSIUM CHLORIDE 40 MEQ, LIDOCAINE MPF 1% - 5 mL VIAL 25 MG in NACL 0.9% 250 ML IV ONE (16:00)
--- NOTE | 2019-05-09 16:25 | NUR ---
FREQUENT ROUNDING ON PT PT APPEARS STABLE AND IN NO APPARENT DISTRESS. ALL SAFETY MEASURES ARE IN PLACE WILL CONTINUE TO MONITOR.
[2019-05-09] MEDS ORDERED: KCL 20 MEQ/WATER INJ PREMIX 100 ML IV ONE ×2 (16:30→18:45)
[2019-05-09] MEDS ORDERED: CREON 24000 UNIT PO SCH (16:30)
--- NOTE | 2019-05-09 17:00 | NUR ---
PLACE 20G IV IN RIGHT AC
--- NOTE | 2019-05-09 17:25 | NUR ---
RECEIVED SIGNED CONSENT FOR CT WITH CONTRAST. SPOKE WITH RADIOLOGIST UNABLE TO PERFORM CT MACHINE IS DOWN DUE TO POWER OUTAGE.
[2019-05-09] MEDS ORDERED: HYDROmorphone 1 MG/ML AMP ONE (18:16)
--- NOTE | 2019-05-09 18:35 | NUR ---
FREQUENT ROUNDING ON PT PT APPEARS STABLE AND IN NO APPARENT DISTRESS. ALL SAFETY MEASURES ARE IN PLACE WILL CONTINUE TO MONITOR.
--- NOTE | 2019-05-09 19:28 | NUR ---
ENDORSED PT TO ELECTRICIAN REFINERY NURSE. PT IS AWAKE IN BED PT APPEARS STABLE AND IN NO APPARENT DISTRESS. ALL SAFETY MEASURES ARE IN PLACE
--- NOTE | 2019-05-09 19:29 | NUR ---
RECEIVED BEDSIDE REPORT FROM CRIS RN, PT STABLE, NO DISTRESS NOTED, PT IS NAUSEATED, IS AWARE, PT ALSO HAS PAIN AND IS AWARE PT DOES NOT WANT TO TAKE THE NORCO D/T VOMITING, AWARE. IV TO R AC 20G PATENT INTACT AND R WRIST 22G, PATENT INTACT, INFUSING POTASSIUM AT THIS MOMENT, INFUSING WELL, PT RESTING, NO DISTRESS NOTED, CALL LIGHT WITHIN REACH, WILL CONTINUE TO MONITOR.
[2019-05-09] MEDS ORDERED: METOCLOPRAMIDE 10 MG/2 ML INJ VIAL IVP PRN (19:30)
--- NOTE | 2019-05-09 19:48 | NUR ---
PT VOMITTING, DR. DONA TOLLIVER, MEDICATION ADMINISTERED, PT TOLERATED WELL, NO DISTRESS NOTED, CALL LIGHT WITHIN REACH, WILL CONTINUE TO MONITOR.
[2019-05-09] MEDS ORDERED: METOCLOPRAMIDE 10 MG/2 ML INJ VIAL ONE (19:55)
--- NOTE | 2019-05-09 20:30 | NUR ---
PT STATED WANTING TO HAVE SHOWER, DR. LAINEZ STATED OK FOR PT TO TAKE SHOWER, PT WENT TO SHOWER.
[2019-05-09] MEDS: DOCUSATE SODIUM 100 MG GELCAP PO SCH (21:00)
--- NOTE | 2019-05-09 21:00 | NUR ---
PT CAME OUT OF SHOWER AND ACCIDENTLY PULLED R WRIST 22G, CATH INTACT.
[2019-05-09] MEDS: PROMETHAZINE 25 MG/ML VIAL IM PRN (21:38)
--- NOTE | 2019-05-09 21:38 | NUR ---
PT STILL VOMITING, ORDERED PHENERGAN, MEDICATION ADMINISTERED, PT TOLERATED WELL, PT REFUSED COLACE STATED SHE DOES NOT WANT TO BE VOMITING AND ALSO HAVING DIARRHEA AT THE SAME TIME. DUE MEDICATIONS ADMINISTERED, PT TOLERATED WELL, NO DISTRESS NOTED, CALL LIGHT WITHIN REACH, WILL CONTINUE TO MONITOR.
[2019-05-09] MEDS: AMITRIPTYLINE 10 MG TAB PO SCH (21:40)
[2019-05-09] MEDS: PANTOPRAZOLE 40 MG TABEC PO SCH (21:41)
[2019-05-09] MEDS: LORazepam 1 MG TAB PO SCH (21:42)
--- NOTE | 2019-05-09 21:57 | NUR ---
PT WENT TO CT IN STABLE CONDITION
--- NOTE | 2019-05-09 22:13 | NUR ---
PT CAME BACK FROM CT
[2019-05-09] MEDS: KETOROLAC 15 MG/ML VIAL IVP SCH (22:16)
--- NOTE | 2019-05-09 22:16 | NUR ---
PT HAS ABD PAIN 06/05, PER DR. FATOU HERNÁNDEZ TO GIVE TORADOL 0000 DOSE RIGHT NOW.
[2019-05-10] VITALS: BP 92/58
--- NOTE | 2019-05-10 00:02 | NUR ---
PT RESTING NO DISTRESS NOTED V/S TAKEN, WNL, CALL LIGHT WITHIN REACH WILL CONTINUE TO MONITOR.
[2019-05-10] MEDS: ONDANSETRON 4 MG/2 ML VIAL IVP PRN ×4 (02:11→19:44)
--- NOTE | 2019-05-10 02:11 | NUR ---
PT VOMITED, ZOFRAN GIVEN PER MD ORDER, PT TOLERATED WELL, NO DISTRESS NOTED, CALL LIGHT WITHIN REACH, WILL CONTINUE TO MONITOR.
[2019-05-10] MEDS: DEXT 5% / NACL 0.9% 500 ML IV SCH ×3 (02:15→08:07)
[2019-05-10] MEDS: PROMETHAZINE 25 MG/ML VIAL IM PRN ×3 (04:44→16:12)
--- NOTE | 2019-05-10 04:50 | NUR ---
PT HAS NOT URINATE THE WHOLE NIGHT, NOTIFIED DR. LAINEZ REGARDING BLADDER SCAN SHOWING 477ML URINE, STATED UNDERSTANDING, WILL ORDER BLADDER SCAN Addendum: 05/10/19 at 0512 by Doreen Devi RN WILL ORDER LACEY DOWNING
--- NOTE | 2019-05-10 05:10 | NUR ---
TRIED TO STRAIGHT CATH PT, UNABLE TO ADVANCE CATHETER, NOTIFIED DR. FATOU DR, STATED OK TO WAIT IF PT CAN URINATE LATER.
[2019-05-10] MEDS: KETOROLAC 15 MG/ML VIAL IVP SCH ×2 (05:13→11:00)
[2019-05-10 06:30] LABS: BILIRUBIN,URINE 1+ (NEGATIVE); BLOOD, URINE NEGATIVE (NEGATIVE); COLOR,URINE YELLOW (YELLOW); LEUKOCYTE ESTERASE ,URINE NEGATIVE (NEGATIVE); NITRITE, URINE NEGATIVE (NEGATIVE); UGLUCOSE 2+ (NEGATIVE)
[2019-05-10 06:53] LABS: APPEARANCE,URINE SLIGHTLY HAZY (CLEAR)
[2019-05-10 06:54] LABS: RBC,URINE 0-5 /HPF (0-5); WBC,URINE 0-5 /HPF (0-5)
--- NOTE | 2019-05-10 07:15 | NUR ---
ENDORSED PT TO DAY SHIFT NURSE ANEL RN, PT STABLE, NO DISTRESS NOTED.
--- NOTE | 2019-05-10 07:17 | NUR ---
RECEIVED REPORT FROM LIQUID FERTILIZER SERVICER. PT AAOX4, LYING IN BED, AROUSABLE TO NAME. RESPIRATIONS EVEN AND UNLABORED ON RA. C/O 6/10 PAIN AND POINTING TO STOMACH AND N/V, WILL MEDICATE. BOWEL SOUNDS ACTIVE, LBM 05/09. IV SITE ON LT AC 20 GA RUNNING IVF PER ORDER, DRESSING IS CLEAN, DRY AND INTACT. SKIN COLOR APPROPRIATE TO ETHNICITY, WARM TO TOUCH, SKIN IS INTACT. REVIEWED POC WITH PT, PT VERBALIZED UNDERSTANDING. WILL CONTINUE TO MONITOR.
[2019-05-10 07:49] LABS: BASOPHILS % (AUTO) 0.1 % (0.0-2.0); HEMATOCRIT 38.4 % (36-52); HEMOGLOBIN 12.3 g/dL (12.0-18.0); LYMPHOCYTES # (AUTO) 1.2 K/uL (2.0-11.5); LYMPHOCYTES % (AUTO) 11.1 % (20.5-51.1); MEAN CORPUSCULAR HEMOGLOBIN 26 pg (27-31); MEAN CORPUSCULAR HGB CONC 32 g/dL (33-37); MEAN CORPUSCULAR VOLUME 81.5 fL (80-94); MONOCYTES # (AUTO) 0.9 K/uL (0.8-1.0); MONOCYTES % (AUTO) 8.9 % (1.7-9.3); NEUTROPHILS # (AUTO) 8.4 K/uL (1.8-7.7); NEUTROPHILS % (AUTO) 79.9 % (42.2-75.2); PLATELET COUNT (AUTO) 227 K/uL (140-450); RED BLOOD CELL COUNT(AUTO) 4.71 MIL/uL (4.20-6.10); RED CELL DISTRIBUTION WIDTH 13.9 % (11.6-13.7); WHITE BLOOD COUNT (AUTO) 10.6 K/uL (4.8-10.8)
[2019-05-10 07:54] LABS: BARBITURATE, URINE NEG. ng/ml (NEG <=200); BENZODIAZEPINE, URINE NEG. ng/mL (NEG <=200); CANNABINOID, URINE POS. ng/mL (NEG <=50); COCAINE, URINE NEG. ng/mL (NEG <=300); OPIATE, URINE POS. ng/mL (NEG <=2000); PHENCYCLIDINE SCREEN,URINE NEG. ng/mL (NEG <=25)
--- NOTE | 2019-05-10 07:58 | NUR ---
PT C/O N/V AT THIS TIME. GIVEN ZOFRAN, WILL REASSESS AT A LATER TIME.
[2019-05-10 08:00] VITALS: BP 130/82
[2019-05-10 08:00] LABS: ANION GAP 14.8 (8-16); CARBON DIOXIDE 25.7 mmol/L (21-32); CREATININE 0.7 mg/dL (0.7-1.3); POTASSIUM 3.5 mmol/L (3.5-5.1)
[2019-05-10 08:03] LABS: MAGNESIUM 2.1 mg/dL (1.8-2.4); PHOSPHORUS 3.7 mg/dL (2.5-4.9)
[2019-05-10] MEDS: SPIRONOLACTONE 50 MG TAB PO SCH ×3 (08:04→10:46)
[2019-05-10] MEDS: SERTRALINE 50 MG TAB PO SCH ×3 (08:05→10:46)
[2019-05-10] MEDS: PANTOPRAZOLE 40 MG TABEC PO SCH ×2 (08:05→21:00)
[2019-05-10] MEDS: LORazepam 1 MG TAB PO SCH ×2 (08:05→21:00)
[2019-05-10] MEDS: DOCUSATE SODIUM 100 MG GELCAP PO SCH ×2 (08:05→21:00)
--- NOTE | 2019-05-10 08:25 | NUR ---
PT REPORTED THAT SHE VOMITED AND UNABLE TO HOLD DOWN ROUTINE MEDICATIONS GIVEN. NOTIFIED PT THAT I WILL NOTIFY PHYSICIAN AND GIVE HER UPDATES. WILL CONTINUE TO MONITOR.
--- NOTE | 2019-05-10 08:30 | NUR ---
SPOKE WITH DR. TILLMAN REGARDING PT'S N/V AND PAIN. PER PHYSICIAN, WILL READJUST MEDICATIONS. WILL CONTINUE TO MONITOR PT.
[2019-05-10 08:50] LABS: CHOL/HDL RATIO 3.3 (1-4.5)
[2019-05-10] MEDS ORDERED: ESTRADIOL 2 MG PO SCH ×3 (09:00→16:15)
[2019-05-10] MEDS ORDERED: ESTRADIOL 1 MG TAB PO SCH (09:00)
[2019-05-10] MEDS ORDERED: PROGESTERONE 100 MG PO SCH ×4 (09:00→16:15)
[2019-05-10] MEDS ORDERED: ONDANSETRON 4 MG/2 ML VIAL IVP PRN (09:15)
[2019-05-10] MEDS: FAMOTIDINE 20 MG/2 ML VIAL IV SCH (09:57)
--- NOTE | 2019-05-10 10:10 | NUR ---
PATIENT HAS BEEN SCREENED AND CATEGORIZED HIGH NUTRITION RISK. PATIENT WILL BE SEEN WITHIN 1-2 DAYS OF ADMISSION. 05/10/19-05/11/[address]
--- NOTE | 2019-05-10 10:12 | NUR ---
PT GIVEN PHENERGAN FOR N/V. RESPIRATIONS EVEN AND UNLABORED. DR. JARA AT BEDSIDE. PT HAS NO SIGNS OF DISTRESS AT THIS TIME.
[2019-05-10] MEDS ORDERED: CREON 24000 UNIT PO SCH ×2 (10:53→17:54)
--- NOTE | 2019-05-10 11:00 | NUR ---
PT IS REFUSING PO MEDS AT THIS TIME SAYING "I'M AFRAID I'M JUST GOING TO THROW IT UP". MEDICATIONS HELD, BP 116/74 AND HR 78. WILL CONTINUE TO MONITOR. PT IS UNDERGOING ULTRASOUND AT THIS TIME.
[2019-05-10] MEDS ORDERED: fentaNYL 0.05 MG/ML VIAL ONE (11:22)
[2019-05-10] MEDS ORDERED: MIDAZOLAM 2 MG/2 ML VIAL ONE ×2 (11:22→11:44)
[2019-05-10] MEDS: MIDAZOLAM 2 MG/2 ML VIAL IVP SCH ×2 (11:23→12:30)
[2019-05-10] MEDS: fentaNYL 0.05 MG/ML VIAL IVP SCH ×2 (11:26→12:30)
[2019-05-10] MEDS: diphenhydrAMINE 50 MG/ML VIAL IVP SCH ×2 (11:28→12:30)
[2019-05-10] MEDS ORDERED: diphenhydrAMINE 50 MG/ML VIAL ONE (11:39)
[2019-05-10 11:55] VITALS: BP 110/70
--- NOTE | 2019-05-10 11:55 | NUR ---
PT HAS RETURNED FROM EGD PROCEDURE. PER MARISSA CROCKER, PT TOLERATED PROCEDURE WELL. PT HAS NO SIGNS OF DISTRESS AT THIS TIME.
[2019-05-10] MEDS: DEXT 5% /NACL 0.9% 1,000 ML IV SCH ×2 (12:50→22:50)
[2019-05-10 16:00] VITALS: BP 112/62
[2019-05-10] MEDS: LORazepam 2 MG/ML VIAL IM/IVP PRN ×2 (16:12→21:32)
--- NOTE | 2019-05-10 16:12 | NUR ---
PT REPORTS FEELINGS OF ANXIETY AND N/V. MEDICATED WITH ATIVAN AND PHENERGAN PER ORDER. WILL CONTINUE TO MONITOR.
--- NOTE | 2019-05-10 17:12 | NUR ---
PT STATES "I AM FEELING A LOT BETTER." NO C/O NAUSEA OR VOMITING. NO SIGNS OF DISTRESS. MOOD HAPPY WHILE TALKING WITH VISITOR REKHA AT BEDSIDE.
[2019-05-10] MEDS ORDERED: COMMUNICATION ORDER MC PRN (17:35)
[2019-05-10] MEDS ORDERED: CREON 24000 UNIT PO PRN (17:40)
--- NOTE | 2019-05-10 19:20 | NUR ---
ENDORSED PT TO CORPORATE DIRECTOR OF HUMAN RESOURCES NURSE. NO SIGNS OF DISTRESS AT THIS TIME.
--- NOTE | 2019-05-10 19:21 | NUR ---
RECEIVED REPORT FROM AM NURSE. PT SITTING UP IN BED, AWAKE ALERT AND ORIENTED X4. PT FAMILY AT BEDSIDE. BREATHING UNLABORED ON ROOM AIR. PT LEFT AC 20G INTACT AND INFUSING WELL. SAFETY MEASURES IN PLACE. CALL LIGHT WITHIN REACH. WILL CONTINUE TO MONITOR.
--- NOTE | 2019-05-10 19:44 | NUR ---
ZOFRAN GIVEN FOR VOMITTING. SERVICE TEAM LEADER INSTRUCTED NOT TO GIVE PT LIQUIDS WITH RED COLORING. SERVICE TEAM LEADER VERBLAIZED UNDERSTANDING.
[2019-05-10] MEDS ORDERED: KETOROLAC 15 MG/ML VIAL ONE (20:03)
[2019-05-10] MEDS: KETOROLAC 15 MG/ML VIAL IVP PRN (20:12)
--- NOTE | 2019-05-10 20:12 | NUR ---
TORADOL GIVEN FOR 5/10 MUSCULOSKELETAL PAIN
--- NOTE | 2019-05-10 20:20 | NUR ---
REGLAN GIVEN FOR CONTINUED ACTIVE VOMITTING.
[2019-05-10] MEDS ORDERED: PROMETHAZINE 25 MG/ML VIAL IM PRN (20:45)
[2019-05-10] MEDS: PROMETHAZINE 25 MG/ML VIAL IVP PRN ×3 (21:00→22:53)
[2019-05-10] MEDS: AMITRIPTYLINE 10 MG TAB PO SCH ×2 (21:00→23:05)
--- NOTE | 2019-05-10 21:32 | NUR ---
PT CONTINUES TO VOMIT. RESIDENT MD AWARE. ORDERED TO GIVE DOSE OF PHENERGAN AND ATIVAN.
--- NOTE | 2019-05-10 22:15 | NUR ---
PT ASKED IF SHE COULD SHOWER, PER MD RESIDENT OKAY. PT PROVIDED TOWELS AND WASH CLOTH FOR SHOWERING.
--- NOTE | 2019-05-10 23:42 | NUR ---
PT CONTINUES TO VOMIT. RESIDENT MD AWARE. ORDERS TO GIVE ONE TIME DOSE OF ATIVAN AND PHENERGAN.
[2019-05-11] VITALS: BP 139/86
[2019-05-11] MEDS ORDERED: PROMETHAZINE 25 MG/ML VIAL IM/IVP SCH
[2019-05-11] MEDS ORDERED: LORazepam 2 MG/ML VIAL IM/IVP SCH
--- NOTE | 2019-05-11 00:10 | NUR ---
PT TOOK SHOWER TO HELP WITH N/V
[2019-05-11] MEDS: ONDANSETRON 4 MG/2 ML VIAL IVP PRN ×2 (00:46→09:02)
[2019-05-11] MEDS: KETOROLAC 15 MG/ML VIAL IVP PRN ×2 (02:45→09:02)
--- NOTE | 2019-05-11 02:45 | NUR ---
PT GIVEN TORADOL FOR 5/10 PAIN
[2019-05-11] MEDS ORDERED: chlorproMAZINE 25 MG/ML AMP IM SCH (03:00)
[2019-05-11] MEDS ORDERED: HALOPERIDOL IM 5 MG/ML VIAL IM SCH (04:00)
--- NOTE | 2019-05-11 04:08 | NUR ---
PT GIVEN HALDOL FOR NAUSEA.
--- NOTE | 2019-05-11 04:10 | NUR ---
PT ASKED TO SHOWER AGAIN. PT TOLD THAT BECAUSE SHE WAS ADMINISTERED HALDOL SHE HAS TO REMAIN ON THE TELE MONITOR, SO SHE COULD NOT SHOWER AT THIS TIME. PT PROVIDED WARM WASH CLOTH TO HELP WITH NAUSEA.
[2019-05-11 04:30] VITALS: BP 121/66
--- NOTE | 2019-05-11 06:03 | NUR ---
PER RESIDENT MD GARCIA, HOLD PO MEDICATIONS UNTIL PT CAN KEEP DOWN FOOD W/O VOMITING
[2019-05-11] MEDS: CREON 24000 UNIT PO SCH ×2 (06:53→11:30)
[2019-05-11 07:04] LABS: ANION GAP 13.2 (8-16); CREATININE 0.8 mg/dL (0.7-1.3); POTASSIUM 3.2 mmol/L (3.5-5.1)
[2019-05-11 07:09] LABS: MAGNESIUM 1.8 mg/dL (1.8-2.4); PHOSPHORUS 3.4 mg/dL (2.5-4.9)
--- NOTE | 2019-05-11 07:10 | NUR ---
ENDORSED TO AM NURSE. PT IN STABLE CONDITION.
--- NOTE | 2019-05-11 07:11 | NUR ---
RECEIVED REPORT FROM FAMILY SOCIOLOGIST NURSE FOR CONTINUITY OF CARE. PT IN STABLE CONDITION RESPIRATIONS EVEN AND UNLABORED. IV INTACT AND PATENT. BED IN LOW POSITION. BED ALARM ON. WILL CONTINUE TO MONITOR.
[2019-05-11 08:00] VITALS: BP 130/87
[2019-05-11] MEDS: LORazepam 2 MG/ML VIAL IM/IVP PRN (08:05)
[2019-05-11] MEDS: PROMETHAZINE 25 MG/ML VIAL IVP PRN (08:05)
[2019-05-11 08:27] LABS: BASOPHILS % (AUTO) 0.2 % (0.0-2.0); EOSINOPHILS % (AUTO) 0.1 % (0.0-4.0); HEMATOCRIT 38.1 % (36-52); HEMOGLOBIN 12.1 g/dL (12.0-18.0); LYMPHOCYTES # (AUTO) 1.3 K/uL (2.0-11.5); LYMPHOCYTES % (AUTO) 11.5 % (20.5-51.1); MEAN CORPUSCULAR HEMOGLOBIN 26 pg (27-31); MEAN CORPUSCULAR HGB CONC 32 g/dL (33-37); MEAN CORPUSCULAR VOLUME 82.2 fL (80-94); MONOCYTES # (AUTO) 0.9 K/uL (0.8-1.0); NEUTROPHILS # (AUTO) 8.8 K/uL (1.8-7.7); NEUTROPHILS % (AUTO) 80.2 % (42.2-75.2); PLATELET COUNT (AUTO) 222 K/uL (140-450); RED BLOOD CELL COUNT(AUTO) 4.63 MIL/uL (4.20-6.10)
[2019-05-11] MEDS ORDERED: AMOXIL/CLAVUL SUSP 125/31.25 MG-5ML PO SCH (09:00)
[2019-05-11] MEDS: PANTOPRAZOLE 40 MG TABEC PO SCH (09:00)
[2019-05-11] MEDS: DOCUSATE SODIUM 100 MG GELCAP PO SCH (09:00)
[2019-05-11] MEDS: SPIRONOLACTONE 50 MG TAB PO SCH (09:00)
[2019-05-11] MEDS: SERTRALINE 50 MG TAB PO SCH (09:00)
--- NOTE | 2019-05-11 09:02 | NUR ---
GAVE ORDERED DUE MEDICATIONS AT THIS TIME. PT TOLERATED WELL. RESPIRATIONS EVEN AND UNLABORED. BED IN LOW POSITION. BED ALARM ON. WILL CONTINUE TO MONITOR.
[2019-05-11] MEDS: LORazepam 1 MG TAB PO SCH (10:47)
[2019-05-11] MEDS: FAMOTIDINE 20 MG/2 ML VIAL IV SCH (11:10)
--- NOTE | 2019-05-11 11:33 | NUR ---
HELD PT OWN MEDICATION CREON PER RADHA HOLMAN. PT IN STABLE CONDITION. WILL CONTINUE TO MONITOR.
[2019-05-11 12:00] VITALS: BP 122/83
[2019-05-11] MEDS ORDERED: KETOROLAC 15 MG/ML VIAL IVP PRN (12:00)
[2019-05-11] MEDS: DEXT 5% /NACL 0.9% 1,000 ML IV SCH (12:41)
[2019-05-11] MEDS ORDERED: METO-485 PO (12:46)
--- NOTE | 2019-05-11 13:14 | NUR ---
PT LYING IN BED IN STABLE CONDITION. RESPIRATIONS EVEN AND UNLABORED. BED IN LOW POSITION. BED ALARM ON. WILL CONTINUE TO MONITOR.
--- NOTE | 2019-05-11 14:23 | NUR ---
05/11/19 RD INITIAL ASSESSMENT COMPLETED PLEASE REFER TO NUTRITION ASSESSMENT UNDER CARE ACTIVITY FOR ESTIMATED NUTRITIONAL NEEDS. 1. CONTINUE FULL LIQUID DIET TOLERATED 2. RECOMMEND ENSURE CLEAR BID, CONTINUE IF TOLERATED 3. RD TO FOLLOW-UP 2-3 DAYS, HIGH RISK XIAO JONES, RD
--- NOTE | 2019-05-11 14:40 | NUR ---
GAVE DISCHARGE INSTRUCTIONS AND RETRIEVED HOME MEDICATIONS FROM PHARMACY. PT VERBALIZED UNDERSTANDING OF INSTRUCTIONS. IV REMOVED, LUMEN INTACT. ID BAND REMOVED. PT REFUSED WHEELCHAIR. ESCORTED PT TO LOBBY WHERE FRIEND WAS WAITING WITH VEHICLE. IN STABLE CONDITION
== END 2019-05-11 14:40 | disposition home or self-care (01) | DRG 391 ==
LOC: MED 11:26 → MTU 14:02
PROVIDERS: ADMIT General Practice; ATTEND General Practice
PROC: 0DB68ZX Excision of Stomach, Via Natural or Artificial Opening Endoscopic, Diagnostic (ICD-10-PCS; principal; 2019-05-10 11:25)
DX: R11.2 Nausea with vomiting, unspecified (principal); E43 Unspecified severe protein-calorie malnutrition; Z68.1 Body mass index [BMI] 19.9 or less, adult; K86.1 Other chronic pancreatitis; E87.6 Hypokalemia; E83.39 Other disorders of phosphorus metabolism; K58.9 Irritable bowel syndrome, unspecified; K21.9 Gastro-esophageal reflux disease without esophagitis; F41.8 Other specified anxiety disorders; F12.90 Cannabis use, unspecified, uncomplicated; F41.9 Anxiety disorder, unspecified; F32.9 Major depressive disorder, single episode, unspecified; T38.805A Adverse effect of unspecified hormones and synthetic substitutes, initial encounter; Y92.89 Other specified places as the place of occurrence of the external cause; Z81.8 Family history of other mental and behavioral disorders; Z79.890 Hormone replacement therapy
CPT/HCPCS: 36415; 76705; 80048; 80053; 80305; 81001; 82150; 83036; 83690; 83735; 83880; 84100; 84439; 84443; 84484; 85025; 85610; 85730; 86677; 87081; 93005; 96361; 96374; 96375; 96376; 99285; C1758; J1170; J1200; J1630; J1885; J2001; J2060; J2250; J2270; J2405; J2550; J2765; J3010; J3230; J3480; J3490; J7030; J7042; Q0092; Q9967

== ENCOUNTER 2019-05-30 12:03 | Inpatient (IN) | payer BC ==
[~2019-05-30] VITALS: Ht 170.2 cm; Wt 54.0 kg
[~2019-05-30 12:03] MED LIST changes: +AMYL-13 PO; +DRON2.5S4 PO; -HYDR-5123 PO; +METO-485 PO; +PHE25S PO
[2019-05-30 12:10] VITALS: BP 143/96
--- NOTE | 2019-05-30 12:10 | NUR ---
Pt taken to bed 8.
--- NOTE | 2019-05-30 12:19 | NUR ---
39M c/o n/v starting this morning with periumbilical pain radiating to left abdomen, severe 10/10. Denies diarrhea. States diaphoresis. Small amount of vomitus seen- yellow and frothy. BS active. Diffuse abd tenderness. hx IBS, GERD, chronic pancreatitis
--- NOTE | 2019-05-30 12:22 | NUR ---
Dr. Wong evaluating patient at bedside.
--- NOTE | 2019-05-30 12:25 | NUR ---
DR CALDERON AT BEDSIDE
[2019-05-30] MEDS ORDERED: ONDANSETRON 4 MG/2 ML VIAL IVP ONE (12:30)
[2019-05-30] MEDS ORDERED: LORazepam 2 MG/ML VIAL IVP ONE (12:30)
[2019-05-30] MEDS ORDERED: KETOROLAC 30 MG/ML VIAL IVP ONE (12:30)
[2019-05-30] MEDS ORDERED: NACL 0.9% 1,000 ML IV ONE ×2 (12:30→14:25)
--- NOTE | 2019-05-30 12:52 | NUR ---
HOSPITAL UNIT CLERK AT BEDSIDE
[2019-05-30 13:07] LABS: BASOPHILS % (AUTO) 0.2 % (0.0-2.0); EOSINOPHILS % (AUTO) 0.1 % (0.0-4.0); HEMATOCRIT 38.3 % (36-52); HEMOGLOBIN 12.3 g/dL (12.0-18.0); LYMPHOCYTES # (AUTO) 0.8 K/uL (2.0-11.5); MEAN CORPUSCULAR HEMOGLOBIN 26 pg (27-31); MEAN CORPUSCULAR HGB CONC 32 g/dL (33-37); MEAN CORPUSCULAR VOLUME 81.3 fL (80-94); MONOCYTES # (AUTO) 0.3 K/uL (0.8-1.0); MONOCYTES % (AUTO) 3.6 % (1.7-9.3); NEUTROPHILS # (AUTO) 7.6 K/uL (1.8-7.7); PLATELET COUNT (AUTO) 265 K/uL (140-450); RED BLOOD CELL COUNT(AUTO) 4.71 MIL/uL (4.20-6.10); RED CELL DISTRIBUTION WIDTH 13.9 % (11.6-13.7); WHITE BLOOD COUNT (AUTO) 8.8 K/uL (4.8-10.8)
[2019-05-30] MEDS ORDERED: PROCHLORPERAZINE 10 MG/2 ML VIAL IVP ONE (13:10)
[2019-05-30 13:21] LABS: ALBUMIN 3.8 g/dL (3.4-5.0); ANION GAP 14.9 (8-16); CARBON DIOXIDE 24.1 mmol/L (21-32); CREATININE 0.8 mg/dL (0.7-1.3); TOTAL BILIRUBIN 0.5 mg/dL (0.0-1.0)
[2019-05-30 13:31] LABS: NEUTROPHILS % (AUTO) 87.1 % (42.2-75.2)
[2019-05-30] MEDS ORDERED: HALOPERIDOL IM 5 MG/ML VIAL IVP ONE (13:35)
--- NOTE | 2019-05-30 13:40 | NUR ---
ADMINISTERED HALDOL IVP FOR PT C/O NAUSEA.
--- NOTE | 2019-05-30 13:52 | NUR ---
INFORMED PATIENT THAT ORDERED FOR UA. PATIENT STATES HE DOES NOT HAVE URINE. ASKED IF OK TO CATHETERIZE FOR URINE, PATIENT REFUSED.
--- NOTE | 2019-05-30 14:20 | NUR ---
DR CALDERON AT BEDSIDE. PT STATES HE IS STILL NAUSEOUS.
--- NOTE | 2019-05-30 14:48 | NUR ---
NOTIFIED DR. CALDERON THAT PATIENT STILL C/O N/V AND THAT PATIENT STATES PHENERGAN (WHAT PT TAKES AT HOME) WORKS FOR N/V.
[2019-05-30] MEDS ORDERED: PROMETHAZINE 25 MG/ML VIAL IVP ONE ×2 (14:55→16:20)
--- NOTE | 2019-05-30 15:45 | NUR ---
STATES NAUSEA SOMEWHAT LESSENED. NO VOMITING SINCE PHERNERGAN ADMINISTRATION.
--- NOTE | 2019-05-30 16:07 | NUR ---
Note christy in ED - 05/30/19 at 1617 by SUELLEN Patient discharged with v/s stable. Written and verbal after care instructions given and explained. Patient verbalized understanding. Ambulatory with steady gait. All questions addressed prior to discharge. Advised to follow up with PMD. Family member will come picker tender patient from hospital.
--- NOTE | 2019-05-30 16:08 | NUR ---
patient vomiting. Dr. Wong aware.
[2019-05-30] MEDS ORDERED: fentaNYL 0.05 MG/ML VIAL IVP ONE (16:20)
--- NOTE | 2019-05-30 17:17 | NUR ---
Patient asleep in bed, no s/s distress.
--- NOTE | 2019-05-30 18:24 | NUR ---
PATIENT STATES NO VOMITUS SINCE LAST MEDICATION ADMIN BUT IS STILL NAUSEOUS. AOX4 BUT APPEARS VERY DROWSY.
--- NOTE | 2019-05-30 19:06 | NUR ---
NOTIFIED DR. CALDERON THAT PT HAS NOT URINATED SINCE HE GOT HERE. PT STATES HE VOIDED RIGHT BEFORE THIS VISIT. HE FEELS DISTENDED BUT REFUSING CATHETERIZATION. STATES "I WILL URINATE SOON".
[2019-05-30] MEDS ORDERED: DOCUSATE SODIUM 100 MG GELCAP PO PRN (19:10)
[2019-05-30] MEDS ORDERED: FAMOTIDINE 20 MG/2 ML VIAL IV PRN (19:10)
[2019-05-30] MEDS ORDERED: ACETAMINOPHEN 325 MG TAB PO PRN (19:10)
[2019-05-30] MEDS ORDERED: ONDANSETRON 4 MG/2 ML VIAL IM/IVP PRN (19:10)
[2019-05-30] MEDS ORDERED: HYDROcodone/APAP 7.5/325 MG 1 TAB PO PRN (19:10)
[2019-05-30] MEDS ORDERED: LORazepam 2 MG/ML VIAL IM/IVP PRN (19:10)
[2019-05-30] MEDS ORDERED: METOCLOPRAMIDE 10 MG/2 ML INJ VIAL IVP PRN (19:25)
[2019-05-30 19:30] VITALS: BP 136/85
--- NOTE | 2019-05-30 19:30 | NUR ---
ADMITTED A 29M FROM ER. CAME BY WILLOW. ON TELE MONITOR. PT IS VERY DROWSY BUT EASILY AROUSE WHEN NAME CALLED. WITH IV ACCESS ON THE RT FA G 20. CLEAR AND PATENT. SKIN ASSESSMENT.TO BE DINE BUT PT SAID HER SKIN INTACT . ORIENTED TO HOSPITAL ROUTINES. BED ON LOW POSITION. FREQ ROUNDS NEEDED. SIDE RAILS UP X2. CALL LIGHT PLACED WITHIN EASY REACH. WILL F/U ADMIT ORDERS.
--- NOTE | 2019-05-30 19:32 | NUR ---
Patient will be admitted to care of DR. FRY. Admited to MED SURG 112B. Will go to room 112B. Belongings list completed. Report to MARISSA CESPEDES. VSS.
[2019-05-30 19:47] LABS: PROTHROMBIN TIME 10.1 secs (10.8-13.4)
[2019-05-30 19:55] LABS: ALBUMIN 3.9 g/dL (3.4-5.0); FREE T4 (FREE THYROXINE) 1.25 ng/dL (0.76-1.46); MAGNESIUM 1.6 mg/dL (1.8-2.4); THYROID STIMULATING HORMONE 0.7 uIU/mL (0.34-3.74)
[2019-05-30 20:15] LABS: PHOSPHORUS 0.8 mg/dL (2.5-4.9)
[2019-05-30] MEDS: ONDANSETRON 4 MG/2 ML VIAL IM/IVP PRN (20:15)
--- NOTE | 2019-05-30 20:15 | NUR ---
PT NAUSEATED STILL AND DR. TILLMAN CAME . HE SAID TO GIVE BOTH ZOFRAN AND REGLAN AT THE SAME TIME.
[2019-05-30] MEDS: AMITRIPTYLINE 10 MG TAB PO SCH (21:00)
[2019-05-30] MEDS: LORazepam 1 MG TAB PO SCH (21:00)
[2019-05-30] MEDS ORDERED: MAG SULF 2000 MG/WATER PREMIX 50 ML IV SCH (21:30)
[2019-05-30] MEDS ORDERED: DICYCLOMINE HYDROCHLORIDE PO PRN (22:00)
[2019-05-30] MEDS ORDERED: FAMOTIDINE 20 MG/2 ML VIAL IV SCH (22:05)
[2019-05-30] MEDS: DEXT 5% /NACL 0.9% 1,000 ML IV SCH (22:05)
[2019-05-30] MEDS: PANTOPRAZOLE 40 MG INJ VIAL IVP SCH (22:09)
[2019-05-30] MEDS ORDERED: LIDOCAINE VISCOUS 2% 20 ML UDC PO SCH (23:00)
[2019-05-30] MEDS ORDERED: DICYCLOMINE HCL LIQUID 10 MG/5 ML UDC PO SCH (23:00)
[2019-05-30] MEDS ORDERED: ALUMINUM HYD/MAG/SIMETHICONE 30 ML UDC PO SCH (23:00)
[2019-05-30] MEDS ORDERED: POTASSIUM PHOSPHATE 15 MM in NACL 0.9% 250 ML IV SCH (23:00)
[2019-05-30 23:13] LABS: APPEARANCE,URINE CLEAR (CLEAR); BILIRUBIN,URINE NEGATIVE (NEGATIVE); BLOOD, URINE NEGATIVE (NEGATIVE); COLOR,URINE YELLOW (YELLOW); LEUKOCYTE ESTERASE ,URINE NEGATIVE (NEGATIVE); NITRITE, URINE NEGATIVE (NEGATIVE); UGLUCOSE 2+ (NEGATIVE)
[2019-05-30 23:27] LABS: BARBITURATE, URINE NEG. ng/ml (NEG <=200); BENZODIAZEPINE, URINE NEG. ng/mL (NEG <=200); CANNABINOID, URINE POS. ng/mL (NEG <=50); COCAINE, URINE NEG. ng/mL (NEG <=300); OPIATE, URINE NEG. ng/mL (NEG <=2000); PHENCYCLIDINE SCREEN,URINE NEG. ng/mL (NEG <=25)
[2019-05-30] MEDS ORDERED: SODIUM PHOS / POTASSIUM PHOS 1 PKT PDR PO SCH (23:30)
[2019-05-30] MEDS: PROMETHAZINE 25 MG/ML VIAL IVP PRN (23:39)
--- NOTE | 2019-05-30 23:39 | NUR ---
PT VOMITED 280ML GREENISH LIQUID. MEDICATE WITH PHENERGAN 25 MG IVP.
[2019-05-30 23:41] LABS: RBC,URINE 0-5 /HPF (0-5); WBC,URINE 0-5 /HPF (0-5)
[2019-05-31] VITALS: BP 134/74
[2019-05-31] MEDS: MORPHINE SULFATE 2 MG/ML SYR IVP PRN ×4 (00:14→20:26)
--- NOTE | 2019-05-31 00:14 | NUR ---
PT C/O 07/06 ABDOMINAL PAIN . MEDICATED ORDERED. WILL CONTINUE TO MONITOR.
--- NOTE | 2019-05-31 02:30 | NUR ---
MADE ROUNDS. PT ASLEEP. NO S/S OF ANY DISCOMFORT NOTED. WILL CONTINUE TO MONITOR.
[2019-05-31 04:43] VITALS: BP 109/68
--- NOTE | 2019-05-31 06:42 | NUR ---
CALLED PHARMACY AND LEFT MESSAGE FOR THEM THAT NEEDS TO MIX POTASSIUM PHOSPHATE SOON POSSIBLE.BECAUSE PT'S PHOSPHORUS IS 0.8.
--- NOTE | 2019-05-31 07:20 | NUR ---
ENDORSED PT IN STABLE CONDITION TO AM NURSE.
--- NOTE | 2019-05-31 07:21 | NUR ---
RECEIVED REPORT FROM AD WRITER NURSE FOR CONTINUITY OF CARE. PT IN STABLE CONDITION. RESPIRATIONS EVEN AND UNLABORED. ROOM AIR. IV INTACT AND PATENT. SAFETY MEASURES IN PLACE. BED IN LOW POSITION. CALL LIGHT AT BEDSIDE. WILL CONTINUE TO MONITOR.
[2019-05-31] MEDS ORDERED: AMYLASE PO SCH (07:30)
[2019-05-31] MEDS ORDERED: PROTEASE PO SCH (07:30)
[2019-05-31] MEDS ORDERED: LIPASE PO SCH (07:30)
[2019-05-31 08:00] VITALS: BP 109/66
[2019-05-31] MEDS ORDERED: POTASSIUM PHOSPHATE 15 MM in NACL 0.9% 250 ML IV SCH (08:00)
--- NOTE | 2019-05-31 08:08 | NUR ---
PATIENT HAS BEEN SCREENED AND CATEGORIZED MODERATE NUTRITION RISK. PATIENT WILL BE SEEN WITHIN 3-5 DAYS OF ADMISSION. 06/02/19[address]
[2019-05-31 08:10] LABS: ANION GAP 14.3 (8-16); CARBON DIOXIDE 24.1 mmol/L (21-32); CREATININE 0.6 mg/dL (0.7-1.3); POTASSIUM 3.4 mmol/L (3.5-5.1)
[2019-05-31] MEDS: ONDANSETRON 4 MG/2 ML VIAL IM/IVP PRN ×2 (08:12→18:26)
[2019-05-31 08:16] LABS: MAGNESIUM 2.1 mg/dL (1.8-2.4); PHOSPHORUS 3.1 mg/dL (2.5-4.9)
[2019-05-31 08:37] LABS: BASOPHILS % (AUTO) 0.2 % (0.0-2.0); EOSINOPHILS % (AUTO) 0.1 % (0.0-4.0); HEMATOCRIT 35.2 % (36-52); HEMOGLOBIN 11.5 g/dL (12.0-18.0); LYMPHOCYTES # (AUTO) 1.2 K/uL (2.0-11.5); LYMPHOCYTES % (AUTO) 11.2 % (20.5-51.1); MEAN CORPUSCULAR HEMOGLOBIN 26 pg (27-31); MEAN CORPUSCULAR HGB CONC 33 g/dL (33-37); MEAN CORPUSCULAR VOLUME 80.6 fL (80-94); MONOCYTES # (AUTO) 0.9 K/uL (0.8-1.0); MONOCYTES % (AUTO) 8.6 % (1.7-9.3); NEUTROPHILS # (AUTO) 8.3 K/uL (1.8-7.7); NEUTROPHILS % (AUTO) 79.9 % (42.2-75.2); PLATELET COUNT (AUTO) 267 K/uL (140-450); RED BLOOD CELL COUNT(AUTO) 4.37 MIL/uL (4.20-6.10); RED CELL DISTRIBUTION WIDTH 13.8 % (11.6-13.7); WHITE BLOOD COUNT (AUTO) 10.4 K/uL (4.8-10.8)
[2019-05-31] MEDS ORDERED: SERTRALINE 50 MG TAB PO SCH (09:00)
[2019-05-31] MEDS ORDERED: SODIUM PHOS / POTASSIUM PHOS 1 PKT PDR PO SCH (09:00)
[2019-05-31] MEDS ORDERED: PYRIDOXINE 50 MG TAB PO SCH (09:00)
[2019-05-31] MEDS ORDERED: DICYCLOMINE HCL LIQUID 10 MG/5 ML UDC PO PRN (09:05)
--- NOTE | 2019-05-31 09:10 | NUR ---
GAVE ORDERED DUE MEDICATIONS. PT TOLERATED WELL. RESPIRATIONS EVEN AND UNLABORED. BED IN LOW POSITION. CALL LIGHT AT BEDSIDE. BED ALARM ON. WILL CONTINUE TO MONITOR.
[2019-05-31] MEDS: LORazepam 1 MG TAB PO SCH ×2 (09:45→20:52)
[2019-05-31] MEDS: PANTOPRAZOLE 40 MG INJ VIAL IVP SCH ×2 (09:52→21:56)
[2019-05-31] MEDS: DEXT 5% /NACL 0.9% 1,000 ML IV SCH ×2 (09:52→17:18)
--- NOTE | 2019-05-31 11:00 | NUR ---
DR JARA AT BEDSIDE AT THIS TIME. PT IN STABLE CONDITION.
[2019-05-31] MEDS: AMYLASE/LIPASE/PROTEASE 1 CAPDR PO SCH ×2 (12:31→17:27)
--- NOTE | 2019-05-31 13:33 | NUR ---
PT LYING IN BED WATCHING TV IN STABLE CONDITION. RESPIRATIONS EVEN AND UNLABORED. BED IN LOW POSITION. CALL LIGHT AT BEDSIDE. BED ALARM ON. WILL CONTINUE TO MONITOR.
--- NOTE | 2019-05-31 15:46 | NUR ---
PLACED PT CELL PHONE ON SALON MANAGER AT [facility] PER PT REQUEST.
--- NOTE | 2019-05-31 16:45 | NUR ---
RETURNED PT CELL PHONE AFTER CHARGING AT [facility].
--- NOTE | 2019-05-31 18:26 | NUR ---
PT COMPLAINED OF NAUSE. GAVE ORDERED PRN MEDICATION AT THIS TIME. RESPIRATIONS EVEN AND UNLABORED. BED IN LOW POSITION. CALL LIGHT AT BEDSIDE. BED ALARM ON. WILL CONTINUE TO MONITOR.
--- NOTE | 2019-05-31 19:30 | NUR ---
RECD. RESTING IN BED, AWAKE, A/OX4. RESPIRATION EVEN AND UNLABORED. WATCHING TV. IV OF D5NS AT 100 ML/HR INFUSING, RIGHT FOREARM G22. NO NAUSEA/VOMITING NOTED AT THIS TIME. PLAN OF CARE FOR THE SHIFT DISCUSSED. VERBALIZED UNDERSTANDING. DENIES PAIN 0/10.
--- NOTE | 2019-05-31 19:30 | NUR ---
GAVE REPORT TO HAMMER RUNNER NURSE [place] AT THIS TIME. PT IN STABLE CONDITION.
--- NOTE | 2019-05-31 19:31 | NUR ---
Patient's Plan of Care was discussed and reviewed with JOSH: MO[place]
[2019-05-31 20:00] VITALS: BP 114/65
[2019-05-31] MEDS: AMITRIPTYLINE 10 MG TAB PO SCH (20:52)
--- NOTE | 2019-05-31 21:00 | NUR ---
DUE PO MEDICATIONS FOR THE NIGHT GIVEN.
[2019-05-31] MEDS: PROMETHAZINE 25 MG/ML VIAL IVP PRN (21:56)
--- NOTE | 2019-05-31 21:56 | NUR ---
NAUSEATED, MEDICATED WITH PHENERGAN BY MARISSA ROUSE ORDERED.
--- NOTE | 2019-05-31 22:26 | NUR ---
NO NAUSEA NOTED. RESTING COMFORTABLY IN BED.
[2019-05-31] MEDS ORDERED: FAMOTIDINE 20 MG/2 ML VIAL IV SCH (22:30)
--- NOTE | 2019-06-01 | NUR ---
SLEEPING COMFORTABLY IN BED.
[2019-06-01 03:04] VITALS: BP 110/68
--- NOTE | 2019-06-01 04:00 | NUR ---
VS REMAIN STABLE. NO COMPLAINT OF NAUSEA.
[2019-06-01] MEDS: DEXT 5% /NACL 0.9% 1,000 ML IV SCH (04:19)
--- NOTE | 2019-06-01 06:00 | NUR ---
ASKED DR. TILLMAN WHAT TIME THE PATIENT WILL GO HOME TODAY BECAUSE OF HER APPOINTMENT WITH HER HORMONE DOCTOR AT [place]. DR. FRY WHEN THEY MAKE ROUNDS WILL ORDER DISCHARGE.
[2019-06-01] MEDS: ONDANSETRON 4 MG/2 ML VIAL IM/IVP PRN (06:39)
--- NOTE | 2019-06-01 06:39 | NUR ---
WANTS MORPHINE AND ZOFRAN BUT BP IN THE LOW SIDE 102/52, HR 69. MEDICATED WITH ZOFRAN ORDERED BY MARISSA NIÑO.
--- NOTE | 2019-06-01 07:10 | NUR ---
NO NAUSEA NOTED.
--- NOTE | 2019-06-01 07:25 | NUR ---
CONDITION REMAIN STABLE. ENDORSED TO AM SHIFT NURSE FOR CONTINUITY OF CARE.
--- NOTE | 2019-06-01 07:26 | NUR ---
Pt was received from night nurse, JOSH Hayden. Pt is AAOx4 and sitting comfortably in bed. Pt displays no signs of acute distress at this time. Will continue to round and reassess for changes in condition.
[2019-06-01 07:32] LABS: BASOPHILS # (AUTO) 0.1 K/uL (0.00-0.22); EOSINOPHILS # (AUTO) 0.2 K/uL (0-0.4); EOSINOPHILS % (AUTO) 2.7 % (0.0-4.0); HEMATOCRIT 34.5 % (36-52); HEMOGLOBIN 11.2 g/dL (12.0-18.0); LYMPHOCYTES # (AUTO) 2.4 K/uL (2.0-11.5); LYMPHOCYTES % (AUTO) 39.8 % (20.5-51.1); MEAN CORPUSCULAR HEMOGLOBIN 27 pg (27-31); MEAN CORPUSCULAR HGB CONC 32 g/dL (33-37); MEAN CORPUSCULAR VOLUME 82.2 fL (80-94); MONOCYTES # (AUTO) 0.7 K/uL (0.8-1.0); MONOCYTES % (AUTO) 11.1 % (1.7-9.3); NEUTROPHILS # (AUTO) 2.8 K/uL (1.8-7.7); NEUTROPHILS % (AUTO) 45.4 % (42.2-75.2); PLATELET COUNT (AUTO) 218 K/uL (140-450); RED CELL DISTRIBUTION WIDTH 13.9 % (11.6-13.7); WHITE BLOOD COUNT (AUTO) 6.2 K/uL (4.8-10.8)
[2019-06-01 07:44] LABS: ANION GAP 10.7 (8-16); CARBON DIOXIDE 26.3 mmol/L (21-32); CREATININE 0.7 mg/dL (0.7-1.3)
[2019-06-01 07:54] LABS: MAGNESIUM 1.9 mg/dL (1.8-2.4); PHOSPHORUS 2.6 mg/dL (2.5-4.9)
[2019-06-01 08:00] VITALS: BP 125/70
--- NOTE | 2019-06-01 08:30 | NUR ---
Pt requesting for IV morphine. Right forearm IV infiltrated with mild swelling to forearm, IV discontinued, catheter intact. Warm compress applied to right forearm. Pt requested for po [place]. Dr. Koch notified. Per physician, he will input orders.
[2019-06-01] MEDS ORDERED: HYDROcodone/APAP 5/325 MG 1 TAB TAB ONE (08:46)
[2019-06-01] MEDS ORDERED: HYDROcodone/APAP 5/325 MG 1 TAB TAB PO SCH (09:00)
--- NOTE | 2019-06-01 10:30 | NUR ---
Pt received discharge instructions and discharge packet. Pt verbalized understanding. Pt to follow up wit PCP today.
--- NOTE | 2019-06-01 10:45 | NUR ---
Pt, who prefers to be called Drew, discharged from unit. Pt gait steady and she walked out of unit on her own. IV 22 g was removed, catheter intact. All belonging with patient, including her cell phone. Pt ID band removed. Pt discharged in stable condition and will follow up with her PCP at an 11 AM appointment.
[2019-06-01 15:20] LABS: FOLIC ACID 11.3 ng/mL (>3.0)
== END 2019-06-01 10:45 | disposition home or self-care (01) | DRG 391 ==
LOC: MED 12:03 → MTU 19:18
PROVIDERS: ADMIT General Practice; ATTEND General Practice
DX: R11.2 Nausea with vomiting, unspecified (principal); E43 Unspecified severe protein-calorie malnutrition; K86.1 Other chronic pancreatitis; Z68.1 Body mass index [BMI] 19.9 or less, adult; G90.9 Disorder of the autonomic nervous system, unspecified; E83.42 Hypomagnesemia; F41.9 Anxiety disorder, unspecified; K21.9 Gastro-esophageal reflux disease without esophagitis; K58.9 Irritable bowel syndrome, unspecified; F32.9 Major depressive disorder, single episode, unspecified; D64.9 Anemia, unspecified; E55.9 Vitamin D deficiency, unspecified; F19.19 Other psychoactive substance abuse with unspecified psychoactive substance-induced disorder; F12.10 Cannabis abuse, uncomplicated; Z87.11 Personal history of peptic ulcer disease; Z79.890 Hormone replacement therapy
CPT/HCPCS: 36415; 76700; 80048; 80053; 80305; 81001; 82040; 82306; 82553; 82607; 82746; 83036; 83605; 83690; 83735; 83880; 84100; 84105; 84439; 84443; 84484; 85025; 85610; 85730; 87081; 96361; 96374; 96375; 99285; C9113; J0780; J1630; J1644; J1885; J2060; J2270; J2405; J2550; J2765; J3010; J3475; J3490; J7030; J7042; Q0092

== ENCOUNTER 2019-07-04 12:02 | Emergency (ER) | payer BC ==
[~2019-07-04] VITALS: Ht 170.2 cm; Wt 55.3 kg
[~2019-07-04 12:02] MED LIST changes: -ESTR1TAB19 PO; -PROG100C4 PO; -SPIR50TA PO
[2019-07-04 12:13] VITALS: BP 125/85
--- NOTE | 2019-07-04 12:18 | NUR ---
amy [phone] friend phone number
--- NOTE | 2019-07-04 12:18 | NUR ---
pt amb to bed 1 with steady gait
--- NOTE | 2019-07-04 12:44 | NUR ---
29/M C/O LUQ ABD PAIN AND NAUSEA X 1 WEEK. DENIES DIARRHEA. LAST BM THIS AM, NORMAL. PAIN 08/05. IDENTIFIES FEMALE. PMH-GERD, PANCREATITIS, ANXIETY. PATIENT POSITIONED FOR COMFORT; HOB ELEVATED; BEDRAILS UP X1; BED DOWN. ER MD MADE AWARE OF PT STATUS.
[2019-07-04] MEDS ORDERED: NACL 0.9% 1,000 ML IV ONE (13:00)
[2019-07-04] MEDS ORDERED: ONDANSETRON 4 MG/2 ML VIAL IVP ONE (13:00)
[2019-07-04] MEDS ORDERED: LORazepam 2 MG/ML VIAL IVP ONE (13:00)
[2019-07-04] MEDS ORDERED: MORPHINE SULFATE 4 MG/ML SYR IVP ONE (13:00)
--- NOTE | 2019-07-04 13:25 | NUR ---
UNABLE TO PROVIDE URINE AT THIS TIME.
[2019-07-04 13:35] LABS: BASOPHILS # (AUTO) 0.1 K/uL (0.00-0.22); BASOPHILS % (AUTO) 0.4 % (0.0-2.0); HEMATOCRIT 40.1 % (36-52); HEMOGLOBIN 12.9 g/dL (12.0-18.0); LYMPHOCYTES # (AUTO) 0.8 K/uL (2.0-11.5); LYMPHOCYTES % (AUTO) 6.1 % (20.5-51.1); MEAN CORPUSCULAR HEMOGLOBIN 26 pg (27-31); MEAN CORPUSCULAR HGB CONC 32 g/dL (33-37); MEAN CORPUSCULAR VOLUME 80.5 fL (80-94); MONOCYTES # (AUTO) 0.4 K/uL (0.8-1.0); MONOCYTES % (AUTO) 3.1 % (1.7-9.3); NEUTROPHILS # (AUTO) 11.7 K/uL (1.8-7.7); NEUTROPHILS % (AUTO) 90.4 % (42.2-75.2); PLATELET COUNT (AUTO) 305 K/uL (140-450); RED BLOOD CELL COUNT(AUTO) 4.99 MIL/uL (4.20-6.10); RED CELL DISTRIBUTION WIDTH 13.8 % (11.6-13.7); WHITE BLOOD COUNT (AUTO) 12.9 K/uL (4.8-10.8)
[2019-07-04 14:07] LABS: ALBUMIN 4.3 g/dL (3.4-5.0); ANION GAP 17.9 (8-16); CARBON DIOXIDE 22.1 mmol/L (21-32); CREATININE 0.9 mg/dL (0.7-1.3); TOTAL BILIRUBIN 0.5 mg/dL (0.0-1.0)
--- NOTE | 2019-07-04 14:42 | NUR ---
UNABLE TO PROVIDE URINE AT THIS TIME.
[2019-07-04] MEDS ORDERED: MORPHINE SULFATE 2 MG/ML SYR IVP ONE (14:45)
[2019-07-04] MEDS ORDERED: LORazepam 0.5 MG TAB PO ONE (14:45)
[2019-07-04 15:00] VITALS: BP 134/84
--- NOTE | 2019-07-04 15:00 | NUR ---
Patient discharged with v/s stable. Written and verbal after care instructions given and explained. Patient alert, oriented and verbalized understanding of instructions. Ambulatory with steady gait. All questions addressed prior to discharge. ID band removed. Patient advised to follow up with PMD. Rx of RAZA & JAVIER given. Patient educated on indication of medication including possible reaction and side effects. Opportunity to ask questions provided and answered.
== END 2019-07-04 15:00 | disposition home or self-care (01) ==
LOC: MED 12:02
DX: R10.84 Generalized abdominal pain (principal); R11.2 Nausea with vomiting, unspecified; K21.9 Gastro-esophageal reflux disease without esophagitis; F41.9 Anxiety disorder, unspecified; Z79.899 Other long term (current) drug therapy
CPT/HCPCS: 36415; 80053; 83690; 85025; 96361; 96374; 96375; 96376; 99283; J2060; J2270; J2405; J7030

== ENCOUNTER 2020-07-11 10:24 | Emergency (ER) | payer BC, OTHER ==
[~2020-07-11] VITALS: Ht 170.2 cm; Wt 59.0 kg
[2020-07-11 10:28] VITALS: BP 130/86
[2020-07-11 10:36] VITALS: BP 130/86
--- NOTE | 2020-07-11 10:38 | NUR ---
PT AMBULATED TO ROOM 3 WITH STEADY GAIT.
[2020-07-11] MEDS ORDERED: NACL 0.9% 1,000 ML IV SCH (10:39)
[2020-07-11] MEDS ORDERED: KETOROLAC 30 MG/ML VIAL IVP ONE (10:40)
[2020-07-11] MEDS ORDERED: ONDANSETRON 4 MG/2 ML VIAL IVP ONE (10:40)
--- NOTE | 2020-07-11 10:40 | NUR ---
C/O N/V AND GENERALIZED WEAKNESS/ UPPER ABDOMINAL PAIN THAT BEGAN THIS MORNING. PATIENT STATES HE IS HAVING CHILLS. PT IS DIAPHORETIC. PT AOX4 , AFIBRILE , AMBULATORY WITH STEADY GAIT, PINK PALPEBRAL CONJUNCTIVA , ANICTERIC SCLERA , SCE, FLAT SOFT ABDOMEN. PMH: ANXIETY. CHRONIC PANCREATITIS, GERD NKA
--- NOTE | 2020-07-11 10:40 | NUR ---
AT BEDSIDE EVALUATING PT.
--- NOTE | 2020-07-11 10:49 | NUR ---
DR JEREZ AT BEDSIDE EVALUATING PT.
[2020-07-11] MEDS ORDERED: LORazepam 2 MG/ML VIAL IVP ONE (11:00)
--- NOTE | 2020-07-11 11:00 | NUR ---
BLOOD DRAW SENT TO LAB.
[2020-07-11 11:27] LABS: BASOPHILS % (AUTO) 0.3 % (0.0-2.0); EOSINOPHILS # (AUTO) 0.1 K/uL (0-0.4); EOSINOPHILS % (AUTO) 0.5 % (0.0-4.0); HEMATOCRIT 41.4 % (36-52); HEMOGLOBIN 13.5 g/dL (12.0-18.0); LYMPHOCYTES # (AUTO) 1.6 K/uL (2.0-11.5); LYMPHOCYTES % (AUTO) 11.3 % (20.5-51.1); MEAN CORPUSCULAR HEMOGLOBIN 26 pg (27-31); MEAN CORPUSCULAR HGB CONC 33 g/dL (33-37); MEAN CORPUSCULAR VOLUME 79.8 fL (80-94); MONOCYTES # (AUTO) 0.5 K/uL (0.8-1.0); MONOCYTES % (AUTO) 3.5 % (1.7-9.3); NEUTROPHILS # (AUTO) 11.9 K/uL (1.8-7.7); NEUTROPHILS % (AUTO) 84.4 % (42.2-75.2); PLATELET COUNT (AUTO) 324 K/uL (140-450); RED BLOOD CELL COUNT(AUTO) 5.18 MIL/uL (4.20-6.10); RED CELL DISTRIBUTION WIDTH 13.9 % (11.6-13.7); WHITE BLOOD COUNT (AUTO) 14.1 K/uL (4.8-10.8)
[2020-07-11 11:47] LABS: ALBUMIN 4.1 g/dL (3.4-5.0); ANION GAP 17.9 (8-16); CREATININE 0.8 mg/dL (0.6-1.3); POTASSIUM 3.9 mmol/L (3.5-5.1); TOTAL BILIRUBIN 0.7 mg/dL (0.0-1.0)
--- NOTE | 2020-07-11 12:00 | NUR ---
pt comfortable in bed side rail up x1 and lock at lowest position .
--- NOTE | 2020-07-11 12:02 | NUR ---
pt went to restroom still unable to void.
--- NOTE | 2020-07-11 12:12 | NUR ---
dr zazueta at bedside reevaluating pt.
--- NOTE | 2020-07-11 12:20 | NUR ---
Patient discharged with v/s stable. Written and verbal after care instructions given and explained regarding vomitting and nausea . Patient alert, oriented and verbalized understanding of instructions. Ambulatory with steady gait. All questions addressed prior to discharge. ID band removed. Patient advised to follow up with PMD. Rx of phnergan given. Patient educated on indication of medication including possible reaction and side effects. Opportunity to ask questions provided and answered.
== END 2020-07-11 12:20 | disposition home or self-care (01) ==
LOC: MED 10:24
DX: R11.2 Nausea with vomiting, unspecified (principal); R10.9 Unspecified abdominal pain; K21.9 Gastro-esophageal reflux disease without esophagitis; F41.9 Anxiety disorder, unspecified; K86.1 Other chronic pancreatitis; Z79.899 Other long term (current) drug therapy
CPT/HCPCS: 36415; 80053; 83690; 85025; 96361; 96374; 96375; 99284; J1885; J2060; J2405; J7030

== ENCOUNTER 2020-07-14 21:52 | Emergency (ER) | payer OTHER ==
[~2020-07-14] VITALS: Ht 170.2 cm; Wt 61.2 kg
[2020-07-14 21:56] VITALS: BP 145/112
--- NOTE | 2020-07-14 22:03 | NUR ---
PT AMBULATED TO ER BED 08
--- NOTE | 2020-07-14 22:31 | NUR ---
DR. FERRERA AT BEDSIDE EVALUATING PT.
--- NOTE | 2020-07-14 22:31 | NUR ---
30 Y/O TRANSGENDER M PRESENTS TO ED C/O LEFT SIDED ABD PAIN ACCOMPANIED BY VOMITING X 2 DAYS. PT STATES THAT SHE TAKES A PAIN MANGEMENT PATCH, BUTRANS BUT IS DELAYED AND HASN'T TAKEN IT FOR A FEW DAYS. PT VOMITING RED LIQUID. DENIES FEVER/DIARRHEA/CONTACT WITH SICK PATIENTS. PT STATES THAT SHE WAS SEEN HERE 2 DAYS AGO FOR THE SAME REASON AND WAS DIAGNOSED WITH A "VIRAL INFECTION." AIRWAY INTACT, RR EVEN AND UNLABORED. SKIN COOL, DRY AND INTACT. BED LOCKED AND IN LOWEST POSITION, SIDE RAIL UPX1. WILL CONTINUE TO MONITOR. MHX: TRANSGENDER, CHRONIC PANREATITIS, GERD NKA
[2020-07-14] MEDS ORDERED: NACL 0.9% 1,000 ML IV ONE (22:34)
[2020-07-14] MEDS ORDERED: LORazepam 2 MG/ML VIAL IVP ONE (22:35)
[2020-07-14] MEDS ORDERED: HALOPERIDOL IM 5 MG/ML VIAL IM ONE (22:35)
--- NOTE | 2020-07-14 22:38 | NUR ---
IV PLACED IN R AC 22G. PT LABS DRAWN AND GIVEN TO CHANNEL PROGRAM MANAGER.
[2020-07-14 22:47] LABS: BASOPHILS # (AUTO) 0.1 K/uL (0.00-0.22); BASOPHILS % (AUTO) 0.5 % (0.0-2.0); EOSINOPHILS # (AUTO) 0.2 K/uL (0-0.4); EOSINOPHILS % (AUTO) 1.4 % (0.0-4.0); HEMATOCRIT 43.6 % (36-52); LYMPHOCYTES # (AUTO) 2.2 K/uL (2.0-11.5); LYMPHOCYTES % (AUTO) 14.2 % (20.5-51.1); MEAN CORPUSCULAR HEMOGLOBIN 26 pg (27-31); MEAN CORPUSCULAR HGB CONC 32 g/dL (33-37); MEAN CORPUSCULAR VOLUME 81.2 fL (80-94); MONOCYTES # (AUTO) 0.8 K/uL (0.8-1.0); MONOCYTES % (AUTO) 5.3 % (1.7-9.3); NEUTROPHILS # (AUTO) 12.1 K/uL (1.8-7.7); NEUTROPHILS % (AUTO) 78.6 % (42.2-75.2); PLATELET COUNT (AUTO) 328 K/uL (140-450); RED BLOOD CELL COUNT(AUTO) 5.37 MIL/uL (4.20-6.10); RED CELL DISTRIBUTION WIDTH 13.9 % (11.6-13.7); WHITE BLOOD COUNT (AUTO) 15.5 K/uL (4.8-10.8)
[2020-07-14 23:13] LABS: ALBUMIN 4.3 g/dL (3.4-5.0); ANION GAP 15.4 (8-16); CARBON DIOXIDE 23.8 mmol/L (21-32); CREATININE 0.9 mg/dL (0.6-1.3); POTASSIUM 3.2 mmol/L (3.5-5.1); TOTAL BILIRUBIN 0.3 mg/dL (0.0-1.0)
[2020-07-14] MEDS ORDERED: ONDANSETRON 4 MG/2 ML VIAL IVP ONE (23:55)
--- NOTE | 2020-07-14 23:58 | NUR ---
PT TAKEN TO XRAY VIA W/C.
[2020-07-15] MEDS ORDERED: MORPHINE SULFATE 4 MG/ML SYR IVP ONE (00:35)
[2020-07-15] MEDS ORDERED: HALOPERIDOL IM 5 MG/ML VIAL IVP ONE (00:35)
[2020-07-15] MEDS ORDERED: HALOPERIDOL IM 5 MG/ML VIAL ONE (00:37)
--- NOTE | 2020-07-15 01:55 | NUR ---
IV removed, catheter intact and site benign. Applied folded 4x4 gauze and tape to stop bleeding.
[2020-07-15 02:00] VITALS: BP 132/57
--- NOTE | 2020-07-15 02:00 | NUR ---
Patient discharged with v/s stable. Written and verbal after care instructions given and explained. Patient verbalized understanding. Ambulatory with steady gait. All questions addressed prior to discharge. Advised to follow up with PMD. PT TO BE PICKED UP BY FRIEND FOR TRANSPORTATION HOME.
== END 2020-07-15 02:00 | disposition home or self-care (01) ==
LOC: MED 21:52
DX: K20.8 Other esophagitis (principal); F11.23 Opioid dependence with withdrawal; K21.9 Gastro-esophageal reflux disease without esophagitis; F41.9 Anxiety disorder, unspecified; K85.90 Acute pancreatitis without necrosis or infection, unspecified; Z79.899 Other long term (current) drug therapy
CPT/HCPCS: 36415; 74176; 80053; 82150; 83690; 85025; 96361; 96372; 96374; 96375; 99284; J1630; J2060; J2270; J2405; J7030; 81002

== ENCOUNTER 2020-09-04 06:20 | Emergency (ER) | payer OTHER ==
[~2020-09-04] VITALS: Ht 170.2 cm; Wt 61.2 kg
[2020-09-04 06:20] VITALS: BP 158/84
[~2020-09-04 06:20] MED LIST changes: -BEN10 PO; -ELA10 PO; -LORA-476 PO; -METO-485 PO; -ONDA-25 PO
--- NOTE | 2020-09-04 06:20 | NUR ---
biba taken to bed #4
--- NOTE | 2020-09-04 06:33 | NUR ---
30 Y/O TRANSGENDER MALE BIBA FOR C/O WEAKNESS, MUSCLE, JOINT AND BODY "ACHING" PAIN 10/10 RADIATING THROUGHOUT THE BODY. PT STATES, "I FEEL LIKE I WAS BEATEN BY A BAT". RE[place]TS TRAVEL[place] WITH[place] THE LAST 30 DAYS. ALSO REPORTS BEING TESTED FOR COVID X 2WEEKS AGO WITH (-) RESULTS. PT IS A&O X4, RESPIRATIONS WERE EVEN AND UNLABORED EVIDENCE BY RISE AND FALL OF CHEST WALL. IN NO ACUTE DISTRESS NOTED. SKIN WAS INTACT & COOL. BED LOCKED AND PLACED IN LOWEST POSITION. MEDHX: CHRONIC PANCREATITIS, IBS, GERD, ANXIETY. ALLX: NKA
--- NOTE | 2020-09-04 06:40 | NUR ---
GAYLE MÁRQUEZ AT BEDSIDE EVALUATING PT.
[2020-09-04] MEDS ORDERED: KETOROLAC 30 MG/ML VIAL IVP ONE (06:45)
[2020-09-04] MEDS ORDERED: NACL 0.9% 1,000 ML IV ONE (06:45)
--- NOTE | 2020-09-04 06:50 | NUR ---
INFLUENZA & AMBER SWAB COLLECTED, SENT TO LAB.
--- NOTE | 2020-09-04 07:10 | NUR ---
LAB AT BEDSIDE.
--- NOTE | 2020-09-04 07:20 | NUR ---
REPORT GIVEN TO TERESA ANN FOR CONTINUITY OF CARE.
[2020-09-04 07:21] LABS: BASOPHILS # (AUTO) 0.1 K/uL (0.00-0.22); BASOPHILS % (AUTO) 0.3 % (0.0-2.0); EOSINOPHILS % (AUTO) 0.1 % (0.0-4.0); HEMATOCRIT 42.2 % (36-52); HEMOGLOBIN 13.6 g/dL (12.0-18.0); LYMPHOCYTES # (AUTO) 1.4 K/uL (2.0-11.5); LYMPHOCYTES % (AUTO) 6.4 % (20.5-51.1); MEAN CORPUSCULAR HEMOGLOBIN 26 pg (27-31); MEAN CORPUSCULAR HGB CONC 32 g/dL (33-37); MEAN CORPUSCULAR VOLUME 79.7 fL (80-94); MONOCYTES # (AUTO) 0.9 K/uL (0.8-1.0); MONOCYTES % (AUTO) 4.3 % (1.7-9.3); NEUTROPHILS # (AUTO) 19.1 K/uL (1.8-7.7); NEUTROPHILS % (AUTO) 88.9 % (42.2-75.2); PLATELET COUNT (AUTO) 262 K/uL (140-450); RED BLOOD CELL COUNT(AUTO) 5.29 MIL/uL (4.20-6.10); RED CELL DISTRIBUTION WIDTH 13.8 % (11.6-13.7); WHITE BLOOD COUNT (AUTO) 21.5 K/uL (4.8-10.8)
[2020-09-04 07:37] LABS: ALBUMIN 3.8 g/dL (3.4-5.0); ANION GAP 16.9 (8-16); CARBON DIOXIDE 22.9 mmol/L (21-32); CREATININE 0.7 mg/dL (0.6-1.3); POTASSIUM 3.8 mmol/L (3.5-5.1); TOTAL BILIRUBIN 0.6 mg/dL (0.0-1.0)
--- NOTE | 2020-09-04 07:42 | NUR ---
PT REQUESTING FOR ATIVAN HERE, STATES HX OF ANXIETY AND TAKES ATIVAN 1MG OR 2MG DOSE PRN AT HOME, LAST DOSE "A FEW DAYS AGO". PT STATES SOMEONE WILL BE AVAILABLE TO AMMUNITION SPECIALIST PT IF/WHEN DISCHARGED. DR. JEREZ NOTIFIED.
[2020-09-04] MEDS ORDERED: LORazepam 1 MG TAB PO ONE (07:45)
--- NOTE | 2020-09-04 07:52 | NUR ---
Dr. Sky is evaluating the patient at bedside.
[2020-09-04] MEDS ORDERED: MORPHINE SULFATE 4 MG/ML SYR IVP ONE (07:55)
--- NOTE | 2020-09-04 08:20 | NUR ---
COVID PCR SWAB & PAPERWORK DROPPED OFF AT LAB
--- NOTE | 2020-09-04 08:32 | NUR ---
1L NS IVF STILL INFUSING
--- NOTE | 2020-09-04 08:49 | NUR ---
Patient discharged with v/s stable. Written and verbal after care instructions given and explained. Patient alert, oriented and verbalized understanding of instructions. Ambulatory with steady gait. All questions addressed prior to discharge. ID band removed. Patient advised to follow up with PMD. Rx of MOTRIN AND NORCO given. Patient educated on indication of medication including possible reaction and side effects. Opportunity to ask questions provided and answered. PER PT, PT'S WAITING OUTSIDE ER TO DRIVE PT HOME.
[2020-09-04 08:51] VITALS: BP 113/71
== END 2020-09-04 08:49 | disposition home or self-care (01) ==
LOC: MED 06:20
DX: M79.10 Myalgia, unspecified site (principal); R51.9 Headache, unspecified; R05 Cough; F12.90 Cannabis use, unspecified, uncomplicated
CPT/HCPCS: 36415; 80053; 85025; 86703; 87426; 87804; 96361; 96374; 96375; 99284; J1885; J2270; J7030; U0003

== ENCOUNTER 2020-09-07 11:04 | Emergency (ER) | payer OTHER ==
[~2020-09-07] VITALS: Ht 170.2 cm; Wt 64.9 kg
[2020-09-07 11:10] VITALS: BP 140/99
--- NOTE | 2020-09-07 11:15 | NUR ---
Patient ambulated to bed 7. RN evaluating patient at bedside.
--- NOTE | 2020-09-07 11:21 | NUR ---
30 YO M BIB SELF C/O MID ABDOMINAL PAIN X 3 DAYS. ALSO WITH N/V, SORE THROAT. DENIES FEVER, ANY URINARY SYMPTOMS. DENIES ALCOHOL INTAKE. PT WAS TESTED FOR COVID, WITH NEGATIVE RESULTS. IN ER, VSS. WITH ACTIVE VOMITING. BS FLAT, SOFT WITH ACTIVE BOWEL SOUNDS. PT SITTING UPRIGHT IN BED, GIVEN VOMIT BAG. ERMD MADE AWARE OF PT STATUS. PMH: CHRONIC PANCREATITIS, GERD, IBS NKA
[2020-09-07] MEDS ORDERED: fentaNYL citrate 0.05 MG/ML VIAL IVP ONE ×2 (11:35→13:05)
[2020-09-07] MEDS ORDERED: ONDANSETRON 4 MG/2 ML VIAL IVP ONE ×2 (11:35→12:50)
[2020-09-07] MEDS ORDERED: NACL 0.9% 1,000 ML IV ONE (11:35)
--- NOTE | 2020-09-07 11:48 | NUR ---
ATTEMPTED TO DO AN EKG FOR THE PT. WAS UNABLE TO GET AN ACCURATE READING, THE PT WAS NOT ABLE TO SIT STILL. PT BEGAN VOMITTING, WILL ATTEMPT AGAIN AT A LATER TIME.
[2020-09-07 12:26] LABS: BASOPHILS # (AUTO) 0.1 K/uL (0.00-0.22); BASOPHILS % (AUTO) 0.3 % (0.0-2.0); EOSINOPHILS # (AUTO) 0.2 K/uL (0-0.4); HEMATOCRIT 38.6 % (36-52); HEMOGLOBIN 12.1 g/dL (12.0-18.0); LYMPHOCYTES # (AUTO) 2.8 K/uL (2.0-11.5); LYMPHOCYTES % (AUTO) 13.5 % (20.5-51.1); MEAN CORPUSCULAR HEMOGLOBIN 26 pg (27-31); MEAN CORPUSCULAR HGB CONC 31 g/dL (33-37); MEAN CORPUSCULAR VOLUME 81.3 fL (80-94); MONOCYTES # (AUTO) 1.2 K/uL (0.8-1.0); MONOCYTES % (AUTO) 5.6 % (1.7-9.3); NEUTROPHILS # (AUTO) 16.7 K/uL (1.8-7.7); NEUTROPHILS % (AUTO) 79.6 % (42.2-75.2); PLATELET COUNT (AUTO) 275 K/uL (140-450); RED BLOOD CELL COUNT(AUTO) 4.74 MIL/uL (4.20-6.10); RED CELL DISTRIBUTION WIDTH 14.5 % (11.6-13.7)
--- NOTE | 2020-09-07 12:31 | NUR ---
pt unable to produce urine at this time. urine specimen bottle at bedside
[2020-09-07 12:43] LABS: ALBUMIN 3.2 g/dL (3.4-5.0); ANION GAP 20.4 (8-16); CARBON DIOXIDE 16.7 mmol/L (21-32); CREATININE 0.7 mg/dL (0.6-1.3); POTASSIUM 4.1 mmol/L (3.5-5.1); TOTAL BILIRUBIN 0.2 mg/dL (0.0-1.0)
[2020-09-07] MEDS ORDERED: METOCLOPRAMIDE 10 MG/2 ML INJ VIAL IVP ONE (13:45)
[2020-09-07] MEDS ORDERED: HALOPERIDOL IM 5 MG/ML VIAL IM ONE (14:25)
[2020-09-07 15:28] LABS: APPEARANCE,URINE HAZY (CLEAR); BILIRUBIN,URINE NEGATIVE (NEGATIVE); BLOOD, URINE NEGATIVE (NEGATIVE); COLOR,URINE BROWN (YELLOW); LEUKOCYTE ESTERASE ,URINE NEGATIVE (NEGATIVE); NITRITE, URINE NEGATIVE (NEGATIVE); UGLUCOSE 1+ (NEGATIVE)
--- NOTE | 2020-09-07 15:38 | NUR ---
Patient discharged with v/s stable. Written and verbal after care instructions given and explained. Patient alert, oriented and verbalized understanding of instructions. Ambulatory with steady gait. All questions addressed prior to discharge. ID band removed. Patient advised to follow up with PMD. Rx of ZOFRAN, OMEPRAZOLE, XANAX given. Patient educated on indication of medication including possible reaction and side effects. Opportunity to ask questions provided and answered.
[2020-09-07 15:39] VITALS: BP 140/99
--- NOTE | 2020-09-09 04:34 | NUR ---
Late entry---- s/w primary nurse, as follows; NS 0.9% end time : 1301
== END 2020-09-07 15:38 | disposition home or self-care (01) ==
LOC: MED 11:04
DX: F12.188 Cannabis abuse with other cannabis-induced disorder (principal); D72.829 Elevated white blood cell count, unspecified; F41.9 Anxiety disorder, unspecified; R03.0 Elevated blood-pressure reading, without diagnosis of hypertension; K21.9 Gastro-esophageal reflux disease without esophagitis; Z79.899 Other long term (current) drug therapy
CPT/HCPCS: 36415; 71045; 80053; 81003; 83605; 83690; 85025; 87040; 87081; 96361; 96372; 96374; 96375; 96376; 99284; J1630; J2405; J2765; J3010; J7030

== ENCOUNTER 2020-09-10 09:24 | Emergency (ER) | payer OTHER ==
[~2020-09-10] VITALS: Ht 170.2 cm; Wt 63.0 kg
[2020-09-10 09:37] VITALS: BP 144/95
--- NOTE | 2020-09-10 09:45 | NUR ---
Pt c/o N/V and burning difused abdominal pain /10, subjective fever, body aches, anxiety x 3 days. Pt states he was seen in ER earlier this week for similar symptoms and those sx are similar to his chronic pancreatitis. PMH: gerd, IBS, pancreatitis and anxiety MEDS: butrans patch, scopolamine, hormones (transgender), creon
[2020-09-10] MEDS ORDERED: NACL 0.9% 1,000 ML IV ONE ×2 (10:30→13:25)
[2020-09-10] MEDS ORDERED: ONDANSETRON 4 MG/2 ML VIAL IVP ONE ×2 (10:30→13:25)
[2020-09-10] MEDS ORDERED: fentaNYL citrate 0.05 MG/ML VIAL IVP ONE ×2 (10:30→12:20)
[2020-09-10 10:55] LABS: HEMATOCRIT 39.7 % (36-52); HEMOGLOBIN 12.9 g/dL (12.0-18.0); MEAN CORPUSCULAR HEMOGLOBIN 25 pg (27-31); MEAN CORPUSCULAR HGB CONC 32 g/dL (33-37); PLATELET COUNT (AUTO) 415 K/uL (140-450); RED BLOOD CELL COUNT(AUTO) 5.09 MIL/uL (4.20-6.10); WHITE BLOOD COUNT (AUTO) 14.6 K/uL (4.8-10.8)
[2020-09-10] MEDS ORDERED: LORazepam 2 MG/ML VIAL IVP ONE (11:10)
[2020-09-10 11:13] LABS: ALBUMIN 3.6 g/dL (3.4-5.0); ANION GAP 15.6 (8-16); CARBON DIOXIDE 24.3 mmol/L (21-32); CREATININE 0.8 mg/dL (0.6-1.3); POTASSIUM 3.9 mmol/L (3.5-5.1); TOTAL BILIRUBIN 0.3 mg/dL (0.0-1.0)
[2020-09-10 11:20] LABS: LYMPHOCYTES % (MANUAL) 25 % (20-46); MONOCYTES % (MANUAL) 3 % (5-12)
[2020-09-10] MEDS ORDERED: PROCHLORPERAZINE 10 MG/2 ML VIAL IVP ONE (11:40)
[2020-09-10] MEDS ORDERED: PROMETHAZINE 25 MG/ML VIAL IM ONE (11:40)
--- NOTE | 2020-09-10 11:53 | NUR ---
pt has been taking to ct scan via [facility].
--- NOTE | 2020-09-10 12:17 | NUR ---
Pt c/o pain. ERMD made aware
--- NOTE | 2020-09-10 12:40 | NUR ---
ADMINISTERED FENTANYL IVP AND PT REQUESTING MORPHINE FOR HER NEXT DOSE OF PAIN MEDICATION IF THE FENTANYL DOESN'T WORK. DR. ECHEVERRIA MADE AWARE
--- NOTE | 2020-09-10 13:30 | NUR ---
PT AMBULATED TO BATHROOM WITH STEADY GAIT. PT STATED HE IS STILL NOT ABLE TO URINATE AT THIS TIME.
--- NOTE | 2020-09-10 14:17 | NUR ---
ASSISTED PT TO AMBULATE TO RESTROOM, PT STILL UNABLE TO URINATE
[2020-09-10] MEDS ORDERED: ONDANSETRON 4 MG/2 ML VIAL ONE (14:36)
[2020-09-10 14:45] VITALS: BP 123/78
--- NOTE | 2020-09-10 14:45 | NUR ---
Patient discharged with v/s stable. Written and verbal after care instructions given and explained. Patient alert, oriented and verbalized understanding of instructions. Ambulatory with steady gait. All questions addressed prior to discharge. ID band removed. Patient advised to follow up with PMD. Rx of Phenergan & Pepcid given. Patient educated on indication of medication including possible reaction and side effects. Opportunity to ask questions provided and answered.
== END 2020-09-10 14:45 | disposition home or self-care (01) ==
LOC: MED 09:24
DX: K58.9 Irritable bowel syndrome, unspecified (principal); R11.2 Nausea with vomiting, unspecified; K21.9 Gastro-esophageal reflux disease without esophagitis; F12.90 Cannabis use, unspecified, uncomplicated; Z79.899 Other long term (current) drug therapy
CPT/HCPCS: 36415; 74177; 80053; 83690; 85025; 96372; 99283; J2060; J2405; J2550; J3010; J7030; Q9967

== ENCOUNTER 2021-07-01 04:38 | Emergency (ER) | payer SELFPAY ==
[~2021-07-01] VITALS: Ht 170.2 cm; Wt 63.5 kg
[2021-07-01 04:45] VITALS: BP 144/85
--- NOTE | 2021-07-01 04:45 | NUR ---
TO BED AMBULATORY
--- NOTE | 2021-07-01 04:48 | NUR ---
31 YO M BIB SELF WITH C/C OF GENERALIZED ABD PAIN, N/V ,HEART BURN 3 HOURS AGO. STATED HE TOOK PEPCID AND ZOFRAN WITH SOME RELIEF. HX:HITAL HERNIA, PANCREATITIS, IBS RX:BUSIPRONE, GABAPENT NKA
[2021-07-01] MEDS ORDERED: KETOROLAC 15 MG/ML VIAL IVP ONE (05:05)
[2021-07-01] MEDS ORDERED: diphenhydrAMINE 50 MG/ML VIAL IVP ONE (05:05)
[2021-07-01] MEDS ORDERED: NACL 0.9% 1,000 ML IV ONE (05:05)
[2021-07-01] MEDS ORDERED: METOCLOPRAMIDE 10 MG/2 ML INJ VIAL IVP ONE (05:05)
[2021-07-01] MEDS ORDERED: LORazepam 2 MG/ML VIAL IVP ONE (05:45)
[2021-07-01] MEDS ORDERED: FAMOTIDINE 20 MG/2 ML VIAL IVP ONE (05:45)
[2021-07-01] MEDS ORDERED: DICYCLOMINE HCL LIQUID 20 MG, ALUMINUM HYD/MAG/SIMETHICONE 30 ML, LIDOCAINE VISCOUS 2% ... PO ONE ×3 (05:45)
[2021-07-01 05:52] LABS: BASOPHILS # (AUTO) 0.1 K/uL (0.00-0.22); BASOPHILS % (AUTO) 0.4 % (0.0-2.0); EOSINOPHILS # (AUTO) 0.1 K/uL (0-0.4); EOSINOPHILS % (AUTO) 0.3 % (0.0-4.0); HEMATOCRIT 41.4 % (36-52); HEMOGLOBIN 13.5 g/dL (12.0-18.0); LYMPHOCYTES # (AUTO) 2.6 K/uL (2.0-11.5); LYMPHOCYTES % (AUTO) 13.9 % (20.5-51.1); MEAN CORPUSCULAR HEMOGLOBIN 26 pg (27-31); MEAN CORPUSCULAR HGB CONC 33 g/dL (33-37); MEAN CORPUSCULAR VOLUME 79.9 fL (80-94); MONOCYTES # (AUTO) 0.6 K/uL (0.8-1.0); MONOCYTES % (AUTO) 3.4 % (1.7-9.3); NEUTROPHILS # (AUTO) 15.4 K/uL (1.8-7.7); PLATELET COUNT (AUTO) 329 K/uL (140-450); RED BLOOD CELL COUNT(AUTO) 5.18 MIL/uL (4.20-6.10); RED CELL DISTRIBUTION WIDTH 14.3 % (11.6-13.7); WHITE BLOOD COUNT (AUTO) 18.8 K/uL (4.8-10.8)
[2021-07-01] MEDS ORDERED: ALUMINUM HYD/MAG/SIMETHICONE 30 ML UDC ONE (05:58)
[2021-07-01] MEDS ORDERED: DICYCLOMINE HCL LIQUID 10 MG/5 ML UDC ONE (05:58)
--- NOTE | 2021-07-01 06:00 | NUR ---
PT SITTING UP IN BED, IN STABLE CONDITION.
[2021-07-01 06:11] LABS: ALBUMIN 4.1 g/dL (3.4-5.0); ANION GAP 19.7 (8-16); POTASSIUM 3.7 mmol/L (3.5-5.1); TOTAL BILIRUBIN 0.6 mg/dL (0.0-1.0)
--- NOTE | 2021-07-01 07:21 | NUR ---
RECEIVED REPORT JHONATAN RIVERA RN. TRANSFER OF CARE AT THIS TIME.
--- NOTE | 2021-07-01 07:24 | NUR ---
REPORT GIVEN TO MARISSA HANSON. TRANSFER OF CARE AT THIS TIME.
--- NOTE | 2021-07-01 07:34 | NUR ---
PT SLEEPING IN BED, VISIBLE EQUAL RISE AND FALL OF CHEST, VSS, WILL CONTINUE TO MONITOR.
[2021-07-01 08:24] VITALS: BP 124/76
--- NOTE | 2021-07-01 08:25 | NUR ---
Patient discharged with v/s stable. Written and verbal after care instructions given and explained. Patient verbalized understanding. Wheel Chair Assisted with to car. All questions addressed prior to discharge. Advised to follow up with PMD.
--- NOTE | 2021-07-01 09:40 | NUR ---
SPOKE WITH PT FRIEND VINI CORONADO, EN ROUTE TO JOINERS SUPERVISOR PT IN ER LOBBY.
== END 2021-07-01 08:25 | disposition home or self-care (01) ==
LOC: MED 04:38
DX: F12.288 Cannabis dependence with other cannabis-induced disorder (principal); F41.9 Anxiety disorder, unspecified; R10.9 Unspecified abdominal pain; R11.2 Nausea with vomiting, unspecified; K21.9 Gastro-esophageal reflux disease without esophagitis; F32.9 Major depressive disorder, single episode, unspecified
CPT/HCPCS: 36415; 80053; 83690; 85025; 96361; 96374; 96375; 99284; J1200; J1885; J2060; J2765; J3490; J7030